=== PATIENT | male | born 1935 | race Caucasian/White ===

== ENCOUNTER 2020-01-06 08:31 | Inpatient (IN) | payer MEDICARE, OTHER ==
[~2020-01-06] VITALS: Ht 172.7 cm; Wt 94.3 kg
--- NOTE | 2020-01-06 08:35 | NUR ---
BIBRA 61 FROM HOME, W C/O SOB, 86% ON RA, ALBUTEROL 5MG GIVEN BY EMT, O2 SATURATION WENT UP TO 95% ON 4LPM VIA NC. TO ER BED 8, HOOKED TO HARDWARE ENGINEERING MANAGER AND POX, PATIENT NOTED TACHYCARDIC, TEMP OF 101.3F, HYPERVENTILATING. CHANGED TO HOSP GOWN, COOLING MEASURES DONE. AAO x 4, DR MAYORGA AT BEDSIDE FOR EVAL.
--- NOTE | 2020-01-06 08:51 | NUR ---
COVID, RESP PATHOGEN PROFILE AND INFLUENZA SWAB DONE AND SENT TO LAB
[2020-01-06] MEDS ORDERED: ACETAMINOPHEN 325 MG TABLET ONE (09:00)
[2020-01-06] MEDS ORDERED: ACETAMINOPHEN 325 MG TABLET PO ONE (09:00)
--- NOTE | 2020-01-06 09:00 | NUR ---
PAGED [facility].
[2020-01-06 09:06] LABS: BASOPHILS # (AUTO) 0.1 /CMM (0.0-0.2); BASOPHILS % (AUTO) 0.6 % (0.0-2.0); HEMATOCRIT 52 % (39-51); HEMOGLOBIN 17.8 g/dL (13.5-17.5); LYMPHOCYTES # (AUTO) 0.8 /CMM (0.8-4.8); LYMPHOCYTES % (AUTO) 5.5 % (20.0-44.0); MEAN CORPUSCULAR HGB CONC 34 g/dl (31.0-36.0); MEAN CORPUSCULAR VOLUME 92 fL (80-96); MONOCYTES # (AUTO) 0.1 /CMM (0.1-1.30); MONOCYTES % (AUTO) 0.8 % (2.0-12.0); NEUTROPHILS # (AUTO) 12.9 /CMM (1.8-8.9); NEUTROPHILS % (AUTO) 92.1 % (43.0-81.0); PLATELET COUNT (AUTO) 277 /CMM (150-450); RED BLOOD CELL COUNT(AUTO) 5.68 MIL/uL (4.5-6.0)
--- NOTE | 2020-01-06 09:10 | NUR ---
CALLED NURSING SUP FOR TELE BED.
[2020-01-06 09:12] LABS: CALCIUM, SERUM 8.8 mg/dL (8.5-10.1); CARBON DIOXIDE 20 mmol/L (21-32); CHLORIDE 103 mmol/L (98-107); CREATININE 1.9 mg/dL (0.6-1.3); GLUCOSE 133 mg/dL (74-106); POTASSIUM 3.4 mmol/L (3.5-5.1); SODIUM SERUM 143 mmol/L (136-145); UREA NITROGEN, BLOOD 25 mg/dL (7-18)
--- NOTE | 2020-01-06 09:12 | NUR ---
PATIENT NOT ABLE TO PROVIDE URINE SAMPLE. MD PRIETO
[2020-01-06 09:18] LABS: ALANINE AMINOTRANSFERASE 92 U/L (12-78); ALBUMIN 3.1 g/dL (3.4-5.0); ALKALINE PHOSPHATASE 150 U/L (46-116); ASPARTATE AMINOTRANSFERASE 95 U/L (15-37); BILIRUBIN,DIRECT 0.4 mg/dL (0.0-0.2); BILIRUBIN,TOTAL 1.3 mg/dL (0.2-1.0); TOTAL PROTEIN, SERUM 7.5 g/dL (6.4-8.2)
[2020-01-06] MEDS ORDERED: IV NS 0.9% 1,000 ML BAG IV ONE (09:30)
[2020-01-06] MEDS ORDERED: VANCOMYCIN 1 GM in IV D5W 250 ML IV ONE (09:30)
[2020-01-06] MEDS ORDERED: PIPERACILLIN /TAZOBACTAM 3.375 G in IV D5W 50 ML IV ONE (09:30)
--- NOTE | 2020-01-06 10:02 | NUR ---
PATIENT IN BED AWAKE, HOOKED TO MONITOR, VSS. WILL CONTINUE TO MONITOR ACCORDINGLY
--- NOTE | 2020-01-06 10:32 | NUR ---
PATIENT STILL NOT ABLE TO PROVIDE URINE SAMPLE. MD PRIETO
--- NOTE | 2020-01-06 11:12 | NUR ---
REPORT GIVEN TO FELICIA WALTERS OF TELE UNIT
--- NOTE | 2020-01-06 11:45 | NUR ---
RN OPENING NOTE Received patient awake alert oriented to room 110. No signs of distress. VS within normal limits. On NC 4L tolerating well. Will cont to monitor.
[2020-01-06 12:00] VITALS: BP 121/75
[2020-01-06] MEDS ORDERED: Z GUARD REMEDY 2 OZ OINT TP PRN (12:30)
[2020-01-06] MEDS ORDERED: ACETAMINOPHEN 325 MG TABLET PO PRN (12:30)
[2020-01-06] MEDS ORDERED: ZOLPIDEM TARTRATE 5 MG TABLET PO PRN (12:30)
[2020-01-06] MEDS ORDERED: HYDROCODONE/APAP 5/325MG 1 EACH TABLET PO PRN (12:30)
[2020-01-06] MEDS ORDERED: POTASSIUM CL. PREMIX PERIPHER. 50 ML IV SCH (12:30)
[2020-01-06] MEDS ORDERED: FEE PK DOSING 1 MIN EA MC ONE (13:19)
--- NOTE | 2020-01-06 13:44 | NUR ---
RN NOTE Received order from Dr. Perdue to changed Potassium Chloride from IV to PO.
[2020-01-06] MEDS ORDERED: POTASSIUM CHLORIDE 20 MEQ TAB.PRT.SR PO ONE (14:00)
[2020-01-06] MEDS ORDERED: CALCIUM CARBONATE 500 MG TAB.CHEW PO PRN (14:30)
[2020-01-06] MEDS ORDERED: ALBUTEROL SULFATE INH 18 GM HFA.AER.AD IH PRN (15:00)
[2020-01-06] MEDS ORDERED: PIPERACILLIN /TAZOBACTAM 3.375 G in IV D5W 100 ML IV SCH (15:00)
[2020-01-06] MEDS ORDERED: methylPREDNISolone SOD SUCC 125 MG/2ML VIAL IV ONE (15:00)
[2020-01-06] MEDS: PIPERACILLIN /TAZOBACTAM 3.375 G in IV D5W 100 ML IV SCH ×2 (15:46→23:53)
[2020-01-06 16:00] VITALS: BP 142/79
--- NOTE | 2020-01-06 16:30 | NUR ---
PADMINI RN NOTE Received call from LAB reg Troponin level 0.[address] Perdue awaiting call back.
[2020-01-06] MEDS ORDERED: PIPERACILLIN /TAZOBACTAM 3.375 G in IV D5W 50 ML IV SCH (17:00)
--- NOTE | 2020-01-06 17:08 | NUR ---
PADMINI RN NOTE Received call back from Dr. Perdue reg Troponin 0.68 no new orders.
--- NOTE | 2020-01-06 18:30 | NUR ---
PADMINI RN NOTE Patient refused to sign EGD consent form. Paged Dr. Perdue to inform.
--- NOTE | 2020-01-06 18:57 | NUR ---
PADMINI RN CLOSING NOTE Patient in bed sitting having dinner. Appears calm and relaxed. On NC 4L tolerating well @ 95%. Patient is Divehi speaking AO x4 knows adequate Icelandic. Tele reading 100bpm. No signs of distress. Complains of heartburn. Gave Tums with little bit of comfort. Requested to have hot tea. All needs met. All due meds given. Continue on ATB no signs of adverse reaction to medications. Has LIBAN midline.Afebrile throughout the shift. Vital signs within normal limits. Safety measure reinforced. Call light within reach. Bed locked and on lowest position. Siderails up x2. Will endorse to assembler 1st shift nurse for angelica.
[2020-01-06 20:00] VITALS: BP 150/84
[2020-01-07] VITALS: BP 146/70
[2020-01-07 04:00] VITALS: BP 145/90
[2020-01-07 06:21] LABS: BASOPHILS # (AUTO) 0.1 /CMM (0.0-0.2); BASOPHILS % (AUTO) 0.2 % (0.0-2.0); HEMATOCRIT 45 % (39-51); HEMOGLOBIN 15.3 g/dL (13.5-17.5); LYMPHOCYTES % (AUTO) 3.7 % (20.0-44.0); MEAN CORPUSCULAR HGB CONC 34 g/dl (31.0-36.0); MEAN CORPUSCULAR VOLUME 90 fL (80-96); MONOCYTES # (AUTO) 0.9 /CMM (0.1-1.30); MONOCYTES % (AUTO) 3.4 % (2.0-12.0); NEUTROPHILS # (AUTO) 24.4 /CMM (1.8-8.9); NEUTROPHILS % (AUTO) 92.7 % (43.0-81.0); PLATELET COUNT (AUTO) 191 /CMM (150-450); RED BLOOD CELL COUNT(AUTO) 4.98 MIL/uL (4.5-6.0); WHITE BLOOD COUNT (AUTO) 26.3 K/uL (4.3-11.0)
[2020-01-07 06:36] LABS: ALBUMIN 2.6 g/dL (3.4-5.0); CALCIUM, SERUM 8.9 mg/dL (8.5-10.1); CREATININE 1.2 mg/dL (0.6-1.3); MAGNESIUM 1.9 mg/dL (1.8-2.4); PHOSPHORUS 3.8 mg/dL (2.5-4.9); POTASSIUM 4.1 mmol/L (3.5-5.1); TOTAL PROTEIN, SERUM 6.5 g/dL (6.4-8.2)
[2020-01-07 07:09] LABS: THYROID STIMULATING HORMONE 0.648 uIU/mL (0.358-3.74)
[2020-01-07 07:10] LABS: C-REACTIVE PROTEIN 15.2 mg/dL (0.0-0.9)
[2020-01-07] MEDS: PIPERACILLIN /TAZOBACTAM 3.375 G in IV D5W 100 ML IV SCH ×3 (07:31→23:20)
[2020-01-07 08:00] VITALS: BP 143/75
[2020-01-07 08:31] LABS: NEUTROPHILS % (MANUAL) 78 (42-76)
[2020-01-07 08:32] LABS: BAND % (MANUAL) 13 % (0.0-5.0); LYMPHOCYTES % (MANUAL) 5 % (16-48); METAMYELOCYTES % 1 % (0-0); MONOCYTES % (MANUAL) 3 % (0-11.0)
[2020-01-07] MEDS: PANTOPRAZOLE 40 MG TABLET.DR PO SCH (09:26)
[2020-01-07] MEDS: methylPREDNISolone SOD SUCC 125 MG/2ML VIAL IV SCH ×3 (09:26→17:08)
[2020-01-07] MEDS: VANCOMYCIN 1 GM in IV D5W 250 ML IV SCH (09:27)
[2020-01-07] MEDS ORDERED: METO-357 PO (09:56)
[2020-01-07] MEDS ORDERED: ASPI-605 PO (09:56)
[2020-01-07] MEDS ORDERED: DUTA0.5C PO ×2 (09:57→10:00)
[2020-01-07] MEDS ORDERED: ROSU20TA2 PO (09:57)
[2020-01-07] MEDS ORDERED: LINA145C PO (09:58)
[2020-01-07] MEDS ORDERED: TAMS-12 PO (09:59)
[2020-01-07] MEDS ORDERED: VANCOMYCIN 1 GM in IV D5W 250 ML IV SCH (10:00)
[2020-01-07] MEDS ORDERED: FURO40TA5 PO (10:01)
[2020-01-07] MEDS ORDERED: ERGO500040 PO (10:02)
[2020-01-07] MEDS: ATORVASTATIN 10 MG TABLET PO SCH (11:21)
[2020-01-07] MEDS: ASPIRIN 81 MG TAB.CHEW PO SCH (11:21)
[2020-01-07] MEDS: ENOXAPARIN SODIUM 40 MG/0.4 ML DISP.SYRIN SQ SCH (11:22)
[2020-01-07 12:00] VITALS: BP_SYST 119; BP_DIAS 71; BP_DIAS 79
[2020-01-07 12:32] LABS: D-DIMER 9.03 mg/L(FEU (0.17-0.50)
[2020-01-07 16:00] VITALS: BP 134/106
--- NOTE | 2020-01-07 19:41 | NUR ---
Handoff with night team, SELENA Soto. Marshall Ortega RN
[2020-01-07 20:00] VITALS: BP 159/80
[2020-01-08] VITALS: BP 158/82
[2020-01-08 04:00] VITALS: BP 142/89
[2020-01-08] MEDS: VANCOMYCIN 1 GM in IV D5W 250 ML IV SCH ×2 (04:55→22:53)
[2020-01-08 06:19] LABS: BASOPHILS % (AUTO) 0.1 % (0.0-2.0); HEMATOCRIT 43 % (39-51); HEMOGLOBIN 14.7 g/dL (13.5-17.5); LYMPHOCYTES # (AUTO) 0.8 /CMM (0.8-4.8); LYMPHOCYTES % (AUTO) 3.6 % (20.0-44.0); MEAN CORPUSCULAR HGB CONC 34 g/dl (31.0-36.0); MEAN CORPUSCULAR VOLUME 91 fL (80-96); MONOCYTES # (AUTO) 1.1 /CMM (0.1-1.30); MONOCYTES % (AUTO) 5.1 % (2.0-12.0); NEUTROPHILS # (AUTO) 19.5 /CMM (1.8-8.9); NEUTROPHILS % (AUTO) 91.2 % (43.0-81.0); PLATELET COUNT (AUTO) 181 /CMM (150-450); RED BLOOD CELL COUNT(AUTO) 4.73 MIL/uL (4.5-6.0); WHITE BLOOD COUNT (AUTO) 21.4 K/uL (4.3-11.0)
[2020-01-08 07:09] LABS: ALBUMIN 2.5 g/dL (3.4-5.0); BILIRUBIN,TOTAL 0.6 mg/dL (0.2-1.0); CREATININE 0.9 mg/dL (0.6-1.3); MAGNESIUM 2.2 mg/dL (1.8-2.4); PHOSPHORUS 3.5 mg/dL (2.5-4.9); POTASSIUM 4.3 mmol/L (3.5-5.1); TOTAL PROTEIN, SERUM 6.5 g/dL (6.4-8.2)
--- NOTE | 2020-01-08 07:37 | NUR ---
TELE/RN OPENING NOTES RECEIVED PATIENT ON BED. PATIENT IN NO APPARENT RESPIRATORY DISTRESS NOTED. PATIENT ALERT ORIENTED X4. DENIES ANY PAIN AT THIS TIME. ON TELE MONITOR IN PLACED WITH READING SR 74. BED IN LOWEST POSITION SIDE RAILS UP X2. CALL LIGHT WITH IN REACH.WILL CONTINUE TO MONITOR.
[2020-01-08] MEDS: PANTOPRAZOLE 40 MG TABLET.DR PO SCH (07:56)
[2020-01-08 08:00] VITALS: BP 155/76
[2020-01-08] MEDS: PIPERACILLIN /TAZOBACTAM 3.375 G in IV D5W 100 ML IV SCH ×2 (08:50→16:31)
[2020-01-08] MEDS: methylPREDNISolone SOD SUCC 125 MG/2ML VIAL IV SCH ×3 (08:54→16:36)
[2020-01-08] MEDS: ATORVASTATIN 10 MG TABLET PO SCH (08:54)
[2020-01-08] MEDS: ASPIRIN 81 MG TAB.CHEW PO SCH (08:54)
[2020-01-08] MEDS: ENOXAPARIN SODIUM 40 MG/0.4 ML DISP.SYRIN SQ SCH (08:58)
[2020-01-08] MEDS: ALBUTEROL FS 2.5 MG/0.5 ML VIAL.NEB NEB SCH ×5 (09:02→23:52)
[2020-01-08 12:00] VITALS: BP 138/79
[2020-01-08] MEDS ORDERED: IV NS 0.9% 1,000 ML IV PRN (12:16)
[2020-01-08] MEDS ORDERED: IOHEXOL-350 100 ML VIAL IV ONE (13:15)
[2020-01-08] MEDS ORDERED: IV NS 0.9% 250 ML IV ONE (13:15)
[2020-01-08] MEDS ORDERED: METOPROLOL TARTRATE INJ 5 MG/5 ML AMPUL ONE (13:16)
[2020-01-08] MEDS ORDERED: NITROGLYCERIN 0.4 MG/TAB BOTTLE ONE (13:16)
--- NOTE | 2020-01-08 13:20 | NUR ---
TELE/RN NOTES PATIENT IS OUT THE UNIT FOR CT ANGIO 3D IMAGE, CONSTRUCTION PROJECT MANAGER BY RADIO [employer].
[2020-01-08] MEDS ORDERED: IV NS 0.9% 500 ML IV PRN (13:30)
[2020-01-08] MEDS ORDERED: NITROGLYCERIN 0.4 MG/TAB BOTTLE SL ONE (13:30)
[2020-01-08] MEDS: METOPROLOL TARTRATE INJ 5 MG/5 ML AMPUL IVP PRN ×2 (13:37→13:42)
--- NOTE | 2020-01-08 13:50 | NUR ---
Received from unit via bed; ANA;ann CP placed on O2 NC at 2LPM; Received total of Metoprolol 5 10 mg IVP and 0.04 mg NTG SL. pt tolerated procedure; sent back to unit via bed. report given to Vinay WALTERS
--- NOTE | 2020-01-08 14:05 | NUR ---
TELE/RN NOTES PATIENT CAME BACK IN THE UNIT FROM RADIOLOGY.
[2020-01-08 16:00] VITALS: BP 130/80
--- NOTE | 2020-01-08 18:54 | NUR ---
TELE/RN CLOSING NOTES PATIENT IS ON BED. PATIENT IS ALERT AND ORIENTED X 4. PATIENT IN NO APPARENT DISTRESS NOTED. DENIES ANY PAIN AT THIS TIME. TELE MONITOR IN PLACE SINUS RHYTHM 78. PATIENT WITH NASAL CANNULA IN PLACED AT 4 L/MIN. IV ACCESS IN PLACED AT RIGHT UPPER ARM MIDLINE PATENT AND INTACT. IVF OF NS 1L AT 70 ML/HR ON AND INFUSING WELL. SEEN AND EXAMINED BY MD WITH ORDERS MADE AND CARRIED OUT. ALL DUE MEDS WAS GIVEN. SAFETY PRECAUTION IN PLACE. CHECKED PATIENT EVERY 2 HOURS. KEPT PATIENT CLEAN AND DRY THE WHOLE SHIFT. BED IS IN LOWEST POSITION, SIDE RAILS UP X2. CALL LIGHT WITHIN REACH. WILL ENDORSED TO FOURDRINIER MACHINE TENDER FOR YARA.
[2020-01-08 20:00] VITALS: BP 139/85
--- NOTE | 2020-01-08 23:26 | NUR ---
SIFTER OPERATOR NOTES PT C/O ABDOMINAL PAIN D/T CONSTIPATION OF 4 DAYS. ORDER RECEIVED FROM EVI NOONAN FOR COLACE AND DULCOLAX MEDS AND CARRIED OUT. ALL SAFETY MEASURES IN PLACE, BED LOCKED, IN LOWEST POSITION. NAD WILL CONT TO MONITOR.
[2020-01-09] VITALS (8 sets, daily range): BP systolic 123–142; BP diastolic 65–77
[2020-01-09] MEDS: BISACODYL SUPP (10 MG) 10 MG/SUPP.RECT SUPP.RECT RC PRN (00:10)
[2020-01-09] MEDS: DOCUSATE SODIUM 100 MG CAPSULE PO SCH ×2 (00:10→08:03)
[2020-01-09] MEDS: PIPERACILLIN /TAZOBACTAM 3.375 G in IV D5W 100 ML IV SCH ×4 (00:38→23:59)
[2020-01-09] MEDS: ALBUTEROL FS 2.5 MG/0.5 ML VIAL.NEB NEB SCH ×6 (03:14→23:05)
--- NOTE | 2020-01-09 05:32 | NUR ---
WAREHOUSE HELPER NOTES REPORT GIVEN TO MICHAELLE ABOUT TRANSFER
--- NOTE | 2020-01-09 05:45 | NUR ---
CABINETMAKER SUPERVISOR NOTES TRANSFERRED PT TO 3W IN ACCORDANCE WITH ACLS PROTOCOL VIA HOSPITAL BED
--- NOTE | 2020-01-09 05:50 | NUR ---
RN NOTES RECEIVED PATIENT FROM MIKE RN. PATIENT WAS ORIENTED TO ROOM. ON 4L NASAL CANULA NO SOB/ ACUTE RESPIRATOR DISTRESS NOTED. CALL LIGHT IS WITHIN REACH. NO COMPLAINTS OF PAIN AT THE MOMENT. BED IS IN LOWEST LOCKED POSITION WITH SIDE RAILS UP X2. A/O X4. WILL CONTINUE TO MONITOR.
--- NOTE | 2020-01-09 06:50 | NUR ---
RN CLOSE NOTES PATIENT IS WATCHING TV IN BED. BED IS IN LOWEST LOCKED POSITION WITH SIDE RAILS UP X2, SEMI FOWLERS. ON 4L NASAL CANULA SATURATING AT 95%. NO SOB/ ACUTE RESPIRATORY DISTRESS NOTED. NO COMPLAINTS OF PAIN AT THE MOMENT/ APPEARS COMFORTABLE. CALL LIGHT IS WITHIN REACH. ZOSYN IS STILL RUNNING AT 25 MLS/HR THROUGH MIDLINE LIBAN. WILL ENDORSE TO AM NURSE.
[2020-01-09 06:52] LABS: BASOPHILS % (AUTO) 0.1 % (0.0-2.0); HEMATOCRIT 42 % (39-51); HEMOGLOBIN 14.1 g/dL (13.5-17.5); LYMPHOCYTES # (AUTO) 0.5 /CMM (0.8-4.8); LYMPHOCYTES % (AUTO) 3.7 % (20.0-44.0); MEAN CORPUSCULAR HGB CONC 34 g/dl (31.0-36.0); MEAN CORPUSCULAR VOLUME 90 fL (80-96); MONOCYTES # (AUTO) 0.8 /CMM (0.1-1.30); MONOCYTES % (AUTO) 5.4 % (2.0-12.0); NEUTROPHILS # (AUTO) 12.7 /CMM (1.8-8.9); NEUTROPHILS % (AUTO) 90.8 % (43.0-81.0); PLATELET COUNT (AUTO) 164 /CMM (150-450); RED BLOOD CELL COUNT(AUTO) 4.61 MIL/uL (4.5-6.0)
[2020-01-09 06:56] LABS: ALBUMIN 2.5 g/dL (3.4-5.0); BILIRUBIN,TOTAL 0.6 mg/dL (0.2-1.0); CALCIUM, SERUM 8.9 mg/dL (8.5-10.1); CREATININE 0.9 mg/dL (0.6-1.3); PHOSPHORUS 2.8 mg/dL (2.5-4.9); POTASSIUM 4.1 mmol/L (3.5-5.1); TOTAL PROTEIN, SERUM 6.2 g/dL (6.4-8.2)
--- NOTE | 2020-01-09 07:30 | NUR ---
MS/RN Opening note Patient received from shift engineer. A/O X4, unhappy, stating that he doesn't know why he's in hospital and that no doctor has spoken to him and explained any of his test results to him. Will notify Dr Carlos of patient's concerns. Denies pain or shortness of breath, saturation on 4l 97%, other vital signs within normal range. Midline to right upper arm flushing well with normal saline. Safety measures in place, call light within, will continue to monitor and ensure safety.
[2020-01-09] MEDS: ASPIRIN 81 MG TAB.CHEW PO SCH (08:03)
[2020-01-09] MEDS: ATORVASTATIN 10 MG TABLET PO SCH (08:03)
[2020-01-09] MEDS: PANTOPRAZOLE 40 MG TABLET.DR PO SCH (08:03)
[2020-01-09] MEDS: ENOXAPARIN SODIUM 40 MG/0.4 ML DISP.SYRIN SQ SCH (08:04)
[2020-01-09] MEDS: methylPREDNISolone SOD SUCC 125 MG/2ML VIAL IV SCH ×3 (08:04→16:51)
--- NOTE | 2020-01-09 08:40 | NUR ---
MS/RN S/B Dr Carlos Seen by MD - orders noted and carried out.
--- NOTE | 2020-01-09 09:17 | NUR ---
MS/RN Labs Morning labs reviewed: -Trop - 0.0067 -WBC - 14 CXR shows pulmonary vascular congestion with probable right sided pleural effusion.
--- NOTE | 2020-01-09 15:00 | NUR ---
MS/RN Zosyn IAVB zosyn hung as ordered, no signs of any infiltration.
--- NOTE | 2020-01-09 18:16 | NUR ---
MS/RN End note Patient remains in stable condition, no shortness of breath. All medications administered as ordered, all questions and concerns addressed. Will endorse to car shifter.
--- NOTE | 2020-01-09 20:00 | NUR ---
RN NOTES RECEIVED PT. AWAKE ON BED, A/OX3, NOTICED ABOVE TH3E KNEE AMPUTATION, DENIES PAIN, NO SOB, CALL LIGHT WITHIN REACH, SIDERAILSUPX2, CONTINUE TO MONITOR
--- NOTE | 2020-01-09 20:00 | NUR ---
RN NOTES RECEIVED PT. AWAKE, OBTUNDED, VENT DEPENDENT, SR WITH BBB ON TELE MONITOR HR-90, G-TUBE IN PLACE, NOT IN DISTRESS, NO PAIN NOTED, SIDERAILSUPX2, CONTINUE TO MONITOR Addendum: 01/10/20 at 0611 by KORINA PARADA RN WRONG PATIENT
[2020-01-10] MEDS: ALBUTEROL FS 2.5 MG/0.5 ML VIAL.NEB NEB SCH ×6 (02:39→23:30)
--- NOTE | 2020-01-10 06:13 | NUR ---
RN NOTES OFFERED PATIENT SUPPOSITORY BUT PATIENT STATED HE WANTS TO TAKE IT AFTER BREAKFAST, MORNING CARE RENDERED, CALL LIGHT WITHIN REACH, [id number], PT. NEEDS ATTENDED
[2020-01-10 08:00] VITALS: BP 137/84
--- NOTE | 2020-01-10 08:00 | NUR ---
MS RN OPENING NOTES RECEIVED PT IN BED, WATCHING TV IN BED. AOX3. NO CADRIAC OR RESP DISTRESS NOTED. R BKA NOTED ON O2 AT 3L/MIN VIA NASAL CANULA SATURATING AT 95%. NO SOB NOTED. BREATHING EVEN AND UNLABORED. IV ACCESS NOTED ON ON R UPPER ARM MIDLINE G18. INTACT AND PATENT AND FLUSHING WELL. SAFETY PRECAUTIONS IN PLACE. BED LOCKED AND IN LOW POSITION. SIDE RAILS UP X2. BED ALARM ON. WILL CONT TO MONITOR
[2020-01-10 08:03] LABS: BASOPHILS % (AUTO) 0.1 % (0.0-2.0); EOSINOPHILS % (AUTO) 0.6 % (0.0-6.0); HEMATOCRIT 45 % (39-51); HEMOGLOBIN 15.2 g/dL (13.5-17.5); LYMPHOCYTES # (AUTO) 0.9 /CMM (0.8-4.8); LYMPHOCYTES % (AUTO) 7.3 % (20.0-44.0); MEAN CORPUSCULAR HGB CONC 34 g/dl (31.0-36.0); MEAN CORPUSCULAR VOLUME 90 fL (80-96); MONOCYTES % (AUTO) 8.7 % (2.0-12.0); NEUTROPHILS % (AUTO) 83.3 % (43.0-81.0); PLATELET COUNT (AUTO) 174 /CMM (150-450); RED BLOOD CELL COUNT(AUTO) 4.94 MIL/uL (4.5-6.0)
[2020-01-10] MEDS: BISACODYL SUPP (10 MG) 10 MG/SUPP.RECT SUPP.RECT RC PRN (08:15)
[2020-01-10] MEDS: methylPREDNISolone SOD SUCC 125 MG/2ML VIAL IV SCH ×3 (08:15→16:10)
[2020-01-10] MEDS: PANTOPRAZOLE 40 MG TABLET.DR PO SCH (08:15)
[2020-01-10] MEDS: DOCUSATE SODIUM 100 MG CAPSULE PO SCH (08:16)
[2020-01-10] MEDS: ASPIRIN 81 MG TAB.CHEW PO SCH (08:16)
[2020-01-10] MEDS: ATORVASTATIN 10 MG TABLET PO SCH (08:16)
[2020-01-10] MEDS: ENOXAPARIN SODIUM 40 MG/0.4 ML DISP.SYRIN SQ SCH (08:17)
[2020-01-10] MEDS: PIPERACILLIN /TAZOBACTAM 3.375 G in IV D5W 100 ML IV SCH ×2 (08:19→16:10)
[2020-01-10] MEDS ORDERED: MAGNESIUM CITRATE 296 ML BOTTLE PO ONE (08:30)
[2020-01-10 08:37] LABS: CALCIUM, SERUM 9.2 mg/dL (8.5-10.1); CREATININE 1.1 mg/dL (0.6-1.3); PHOSPHORUS 3.2 mg/dL (2.5-4.9); POTASSIUM 4.4 mmol/L (3.5-5.1)
--- NOTE | 2020-01-10 09:30 | NUR ---
ABD PAIN PT COMPLAINED OF ABD PAIN. PER PT, HIS LAST BM WAS [address] DONAHUE CURRENTLY IN PTS ROOM, ORDERED MAGNESIUM CITRATED PO X1 NOW. ADMINISTERED TO PT. WILL MONITOR FOR BOWEL MOVEMENT.
--- NOTE | 2020-01-10 15:00 | NUR ---
EMESIS X1 PT HAD BLACK VOMITUS X1 ABOUT 150ML. ASKED PT IF HE IS STILL NAUSEATED OR IF HE STILL FEELS LIKE THROWING UP. PT STATES , "NO NOT ANYMORE". HOWEVER, HE STILL FEELS ABD DISCOMFORT 12/13. HE CO-RELATES THIS WITH NOT HAVING A BM X6 DAYS HE SAID. ASSESED PTS ABDOMEN, ABDOMEN IS DISTENDED AND A LITTLE HARD TO TOUCH. TENDERNESS FELT BY PT UPON PALPATION. BOWEL SOUNDS PRESENT ON 4 QUADRANTS. HOWEVER, HE STATES THAT HE FELT BETTER AFTER HE THREW UP. NOTIFIED DR. DONAHUE. DR. DONAHUE ORDERED CT SCAN OF ABDOMEN WITH CONTRAST. AND TO KEEP PT NPO STARTING NOW AND THAT HE WANTS GI CONSULT. ORDERS NOTED AND CARRIED OUT.
--- NOTE | 2020-01-10 15:30 | NUR ---
CONSENT OBTAINED FOR CT SCAN OF ABDOMEN CONSENT OBTAINED FROM PT FOR CT SCAN OF THE ABDOMEN. PT AOX4 GAVE CONSENT FOR CT SCAN. ALSO NOTIFIED PT THAT HE WILL BE KEPT NPO FOR NOW UNTIL HIS MD SAYS OTHERWISE OR UNTIL BOWEL OBSTRUCTION IS RULED OUT. PT AGREED.
--- NOTE | 2020-01-10 15:35 | NUR ---
GI CONSULT NOTIFIED DR. OLIVER REGARDING THE NEED FOR GI CONSULT. NOTIFIED MD REGARDING PTS SYMPTOMS. MD ORDERED TO KEEP PT NPO. AND WILL WAIT FOR CT SCAN RESULTS TO RULE OUT OBSTRUCTION. H AND H Q4HRS UNTIL STABLE AND TO TRANSFUSE 1 UNITS PRBC IF HGB <7. ORDERS NOTED AND CARRIED OUT. NOTIFIED DR. OLIVER REGARDING PTS CURRENT HGB= 15.2 HCT= 45. PER MD, 'YES I KNOW. I NOTICED THAT'.
[2020-01-10 16:00] VITALS: BP 140/80
--- NOTE | 2020-01-10 16:30 | NUR ---
SEEN BY DR. OLIVER PT SEEN BY DR. OLIVER, ALSO SHOWED DR. OLIVER PT'S EMESIS. PER MD, 'LOOKS LIKE BILE. MOSTLY LIKELY ITS AN OBSTRUCTION. WE WILL WAIT FOOR CT SCAN RESULTS.'
[2020-01-10] MEDS ORDERED: IOHEXOL-300 100 ML VIAL IV ONE (17:30)
[2020-01-10] MEDS ORDERED: IV NS 0.9% 250 ML IV ONE (17:30)
[2020-01-10] MEDS ORDERED: CT SWABBABLE VALVE TRANS SET 1 EA INFUS.SET MC ONE (17:30)
[2020-01-10 17:36] LABS: HEMOGLOBIN 16.7 g/dL (13.5-17.5)
--- NOTE | 2020-01-10 19:34 | NUR ---
MS/RN OPENING NOTES: RECEIVED REPORT FROM NAZANIN WALTERS FRO DAY SHIFT. PT IS A/OX3, VERBALLY RESPONSIVE AND ABLE TO MAKE NEEDS KNOWN. NO SOB NOTED, NO S/S OF DISTRESS. NO C/O PAIN AT THIS. ON ROOM AIR. RECEIVED PT WITH AN EMESIS BAG AT BEDSIDE WITH DARK WATERY CONTENTS. RIGHT LEG PROSTHESIS PRESENT. SKIN INTACT. IV IS ON THE RIGHT UPPER ARM MIDLINE #18G, INTACT AND PATENT. PER DR. STRONG, KEEP PT NPO FOR NOW UNTIL FURTHER NOTICE. AWAITING FOR CT OF THE ABDOMEN RESULTS TO COME BACK. SAFETY MEASURES IN PLACE. BED IN LOW, LOCKED POSITION WITH SR UP X2. WILL KEEP MONITORING.
--- NOTE | 2020-01-10 19:35 | NUR ---
MS RN OPENING NOTES PT IN BED, WATCHING TV IN BED. AOX3. NO CADRIAC OR RESP DISTRESS NOTED. R BKA NOTED ON O2 AT 3L/MIN VIA NASAL CANULA SATURATING AT 95%. NO SOB NOTED. BREATHING EVEN AND UNLABORED. IV ACCESS NOTED ON ON R UPPER ARM MIDLINE G18. INTACT AND PATENT AND FLUSHING WELL. AWAITING FRO CT RESULTS OF ABDOMEN. KEPT PT NPO. SAFETY PRECAUTIONS IN PLACE. BED LOCKED AND IN LOW POSITION. SIDE RAILS UP X2. BED ALARM ON.
[2020-01-10 20:00] VITALS: BP 141/78
[2020-01-10 20:05] VITALS: BP 141/78
--- NOTE | 2020-01-10 20:39 | NUR ---
MS/RN NOTES: CALLED DR. STRONG REGARDING PT'S CT ABDOMEN RESULTS. PER DR. STRONG, CONTACT HOSPITALIST LOU ESCALANTE TO GET CONSULT FROM SURGEON.
--- NOTE | 2020-01-10 21:00 | NUR ---
MS/RN NOTES: SELENA CURRAN FROM PADMINI IS PRESENT TO TRANSLATE FOR DR. SMALLWOOD REGARDING THE NEED FOR THE EMERGENCY PROCEDURE. PT. CALLED SON: EDD TO DECIDE IF HE WILL AGREE TO DO THE PROCEDURE.
--- NOTE | 2020-01-10 21:23 | NUR ---
MS/RN NOTES: DR. SMALLWOOD AT BEDSIDE TALKING TO THE PT REGARDING NEED FOR EMERGENCY SURGERY FRO THE SMALL BOWEL OBSTRUCTION. ASKED PT IF ITS OKAY TO CALL THE FAMILY.
[2020-01-10] MEDS: PANTOPRAZOLE 40 MG VIAL IV SCH (21:52)
--- NOTE | 2020-01-10 22:00 | NUR ---
MS/RN NOTES: PT.'S DAUGHTER ELIVA CALLED FRO AN UPDATE OF THE PLAN FOR THE SURGERY. INFORMED AND AWARE.
--- NOTE | 2020-01-10 22:40 | NUR ---
MS/RN NOTES: DR. SMALLWOOD CALLED FOR EMERGENCY PROCEDURE; OPEN RIGHT INGUINAL REPAIR, POSSIBLE MESH USE, POSSIBLE LAPAROTOMY. POSSIBLE BOWEL RESECTION, POSSIBLE OSTOMY, POSSIBLE ANY OTHER INDICATED PROCEDURE. ALL CONSENTS SIGNED. DR. SMALLWOOD ALSO ORDERED FOR RITCHIE CATH INSERTION AND NG TUBE INSERTION. EXPLAINED TO PATIENT.
[2020-01-10] MEDS ORDERED: LIDOCAINE 1% INJ 50 ML MDV IJ ONE (22:50)
[2020-01-10] MEDS ORDERED: ANESTHESIA TRAY IN PYXIS 1 EA TRAY MC ONE ×2 (22:50→22:57)
[2020-01-10] MEDS ORDERED: BUPIVACAINE MPF W/EPI 0.25% 30 ML VIAL ONE (22:50)
[2020-01-10] MEDS ORDERED: HYDROMORPHONE INJ 2 MG/ML DISP.SYRIN ONE (22:57)
[2020-01-10] MEDS ORDERED: ROCURONIUM BROMIDE 50 MG/5 ML ONE (22:57)
--- NOTE | 2020-01-10 23:00 | NUR ---
MS/RN NOTES: RN JAZMYNE FROM OR TRANSFERRED PT FOR EMERGENCY PROCEDURE; OPEN RIGHT INGUINAL REPAIR, POSSIBLE MESH USE, POSSIBLE LAPAROTOMY. POSSIBLE BOWEL RESECTION, POSSIBLE OSTOMY, POSSIBLE ANY OTHER INDICATED PROCEDURE. ALL CONSENTS SIGNED. PT HAS RITCHIE CATH PRESENT ORDERED BY DR. SMALLWOOD. NG TUBE PRESENT ORDERED BY LOU ESCALANTE NP AND DR. SMALLWOOD. VS STABLE. PT. LEFT THE UNIT IN STABLE CONDITION VIA BED.
[2020-01-10] MEDS ORDERED: FAMOTIDINE/PF INJ 20 MG/2 ML VIAL IV ONE (23:09)
--- NOTE | 2020-01-11 | NUR ---
MS/RN NOTES: ZOSYN 3.375G ANTIBIOTIC NOT GIVEN BC PT WAS IN OR FOR GI SURGERY.
[2020-01-11] MEDS ORDERED: ALBUTEROL FS 2.5 MG/3 ML VIAL.NEB ONE (01:41)
--- NOTE | 2020-01-11 02:25 | NUR ---
MS/RN NOTES: PT. ARRIVED BACK TO THE UNIT AT 0225 VIA GURNEY. PT IN STABLE CONDITION. SLEEPY YET AROUSABLE WHEN TALKED TO. INITIAL VS TAKEN. BP:129/69 HR:96. SATURATING AT 95-98% AT 4L OF OXYGEN VIA NC. NO SOB NOTED. NO S/S OF DISTRESS. NO C/O PAIN AT THIS TIME. RITCHIE CATH PRESENT WITH 40MLS OF CLEAR YELLOW URINE. DR. SMALLWOOD ORDERED D5/0.45NACL WITH 20MEQ POTASSIUM CHLORIDE FOR FLUIDS, AND ORDERED INTERMITTENT SUCTIONING NG TUBE. ORDERS NOTED AND CARRIED OUT. KEPT PT WARM AND COMFORTABLE FOR NOW AND WILL CONTINUE MONITORING ACCORDINGLY.
[2020-01-11 02:30] VITALS: BP 129/69
[2020-01-11] MEDS ORDERED: Potassium Chloride 20 MEQ in IV D5/0.45 NACL 1,000 ML IV ONE (02:30)
--- NOTE | 2020-01-11 03:00 | NUR ---
TELE/RN NOTES VS TAKEN. BP: 124/68 OR:98% ON 4L OF OXYGEN VIA CANNULA. NGT SUCTION INTERMITTENTLY DRAINING DARK BROWN FLUIDS. RITCHIE CATH ALSO DRAINING YELLOW URINE OUTPUT. Addendum: 01/11/20 at 0653 by PAIGE ZAMORA RN MS/RN
[2020-01-11] MEDS: ALBUTEROL FS 2.5 MG/0.5 ML VIAL.NEB NEB SCH ×6 (03:45→23:36)
[2020-01-11 06:14] LABS: HEMOGLOBIN 15.2 g/dL (13.5-17.5)
[2020-01-11 06:40] LABS: CALCIUM, SERUM 8.4 mg/dL (8.5-10.1); CARBON DIOXIDE 27 mmol/L (21-32); CHLORIDE 107 mmol/L (98-107); CREATININE 1.9 mg/dL (0.6-1.3); GLUCOSE 151 mg/dL (74-106); POTASSIUM 5.1 mmol/L (3.5-5.1); SODIUM SERUM 141 mmol/L (136-145); UREA NITROGEN, BLOOD 54 mg/dL (7-18)
--- NOTE | 2020-01-11 06:54 | NUR ---
MS RN CLOSING NOTES: PT IN BED, RESTING. REMAINS AOX3. NO CARDIAC OR RESP DISTRESS NOTED. R BKA NOTED. CURRENTLY ON O2 AT 4L/MIN VIA NASAL CANULA SATURATING AT 95%. NO SOB NOTED. BREATHING EVEN AND UNLABORED. NO COMPLAINS OF PAIN AT THIS TIME. NGT DRAINING INTERMITTENTLY PER ORDERED BY DR. SMALLWOOD. DRAINED DARK BROWN 500ML FOR THE WHOLE SHIFT. FC DRAINED YELLOW CLEAR URINE 200ML FOR THE WHOLE SHIFT. IV ACCESS ON R UPPER ARM MIDLINE G18. INTACT AND PATENT AND FLUSHING WELL. S/P RIGHT INGUINAL HERNIA REPAIR. DRESSING DRY AND INTACT. PT STILL NPO. KEPT PT WARM AND COMFORTABLE AT NIGHT. ALL NURSING NEEDS MET AND RENDERED. SAFETY PRECAUTIONS IN PLACE. BED LOCKED AND IN LOW POSITION. SIDE RAILS UP X2. BED ALARM ON. WILL ENDORSE TO DAY SHIFT FOR YARA.
--- NOTE | 2020-01-11 07:25 | NUR ---
MS RN NOTES PATIENT IN BED ALERT ORIENTED X 2-3. NO ACUTE DISTRESS NOTED. BREATHING UNLABORED. IV ACCESS PATENT AND INTACT, NO REDNESS OR SWELLING NOTED. RITCHIE CATHTER INTACT WITH DRAINING WELL. SURGICAL DRESSING CLEAN DRY AND INTACT. SAFETY MEASURES IN PLACE. CALL LIGHT WITHIN REACH. WILL CONTINUE TO MONITOR ACCORDINGLY.
[2020-01-11 08:00] VITALS: BP 122/63
[2020-01-11] MEDS: PANTOPRAZOLE 40 MG VIAL IV SCH ×2 (08:27→21:18)
[2020-01-11] MEDS: methylPREDNISolone SOD SUCC 125 MG/2ML VIAL IV SCH ×2 (08:30→10:30)
[2020-01-11] MEDS: PIPERACILLIN /TAZOBACTAM 3.375 G in IV D5W 100 ML IV SCH ×4 (08:33→15:38)
[2020-01-11] MEDS: ASPIRIN 81 MG TAB.CHEW PO SCH (09:00)
[2020-01-11] MEDS: ENOXAPARIN SODIUM 40 MG/0.4 ML DISP.SYRIN SQ SCH (09:00)
[2020-01-11] MEDS: DOCUSATE SODIUM 100 MG CAPSULE PO SCH (09:00)
[2020-01-11] MEDS: ATORVASTATIN 10 MG TABLET PO SCH (09:00)
[2020-01-11 09:42] LABS: HEMOGLOBIN 15.4 g/dL (13.5-17.5)
--- NOTE | 2020-01-11 09:54 | NUR ---
MS RN NOTES CLARIFIED LOVENOX ORDER WITH KRISTA GERONIMO PER MD TO HOLD DOSE, ORDER CLARIFIED AND READ BACK.
[2020-01-11] MEDS ORDERED: IV NS 0.9% 1,000 ML IV PRN (10:30)
[2020-01-11] MEDS ORDERED: IV D5/0.45 NACL 1,000 ML IV SCH (10:30)
--- NOTE | 2020-01-11 11:27 | NUR ---
ms rn notes clarified with dr julio gomez regarding solu medrol was changed to daily, made aware that dose was given this am, dr gomez said to given next dose tomorrow.
[2020-01-11] MEDS: IV D5/0.45 NACL 1,000 ML IV PRN (11:38)
[2020-01-11 16:00] VITALS: BP 120/68
[2020-01-11] MEDS ORDERED: IMIPENEM/CILASTATIN 1,000 MG in IV NS 0.9% 250 ML IV SCH (17:30)
--- NOTE | 2020-01-11 17:30 | NUR ---
MS RN NOTES PATIENT SEEN DNAD EVALUATED BY NAT BOLDEN WITH ORDERS FOR PATIENT MAY HAVE 1 CUP OF ICE CHIPS PER SHIFT. NOTED AND CARRIED OUT.
[2020-01-11] MEDS ORDERED: MEROPENEM 1 G in IV NS 0.9% 100 ML IV SCH (18:00)
[2020-01-11] MEDS: MEROPENEM 1 G in IV NS 0.9% 100 ML IV SCH (18:27)
--- NOTE | 2020-01-11 19:00 | NUR ---
MS RN NOTES PATIENT IN BED ALERT ORIENTED X 2-3. NO ACUTE DISTRESS NOTED. BREATHING UNLABORED. IV ACCESS PATENT AND INTACT, NO REDNESS OR SWELLING NOTED. RITCHIE CATHETER INTACT WITH DRAINING WELL. SURGICAL DRESSING CLEAN DRY AND INTACT. ON NGT SUCTION WITH 200CC OUT PUT. NEEDS ATTENDED AND ANTICIPATED. KEPT CLEAN DRY AND COMFORTABLE. SAFETY MEASURES IN PLACE. CALL LIGHT WITHIN REACH. WILL ENDORSE TO NIGHT NURSE FOR CONTINUITY OF CARE.
--- NOTE | 2020-01-11 19:14 | NUR ---
MS RN: RECEIVED PATIENT Patient in bed, awake, A/O x3. Right groin no bleeding, denies pain. Right nares, NGT to LIWS with dark green fluid drainage. NPO, IVF infusing. Fall; precaution maintained.
[2020-01-11 20:00] VITALS: BP 137/71
[2020-01-11 20:30] VITALS: BP 137/71
[2020-01-12] MEDS: ALBUTEROL FS 2.5 MG/0.5 ML VIAL.NEB NEB SCH ×6 (03:59→22:39)
[2020-01-12] MEDS: IV D5/0.45 NACL 1,000 ML IV PRN ×2 (05:30→19:08)
[2020-01-12] MEDS: MEROPENEM 1 G in IV NS 0.9% 100 ML IV SCH ×2 (05:36→18:30)
--- NOTE | 2020-01-12 06:33 | NUR ---
MS RN: END OF SHIFT REPORT Patient in bed, 96% on 2L NC, denies SOB. NPO, IVF infusing. NGT to LIWS with 400ml drainage dark brown. Abdomen still distended, denies pain. Ice chip per shift as ordered, no c/o nausea, no vomiting. No BM this shift, reports no flatus. Right groin with steri-strips in place, no bleeding. Fall precaution maintained. Plan for XR Chest today. Will endorse to oncoming RN.
[2020-01-12 07:11] LABS: BASOPHILS % (AUTO) 0.1 % (0.0-2.0); EOSINOPHILS % (AUTO) 0.3 % (0.0-6.0); HEMATOCRIT 43 % (39-51); HEMOGLOBIN 14.5 g/dL (13.5-17.5); LYMPHOCYTES # (AUTO) 0.7 /CMM (0.8-4.8); LYMPHOCYTES % (AUTO) 4.6 % (20.0-44.0); MEAN CORPUSCULAR HGB CONC 33 g/dl (31.0-36.0); MEAN CORPUSCULAR VOLUME 92 fL (80-96); MONOCYTES # (AUTO) 0.8 /CMM (0.1-1.30); MONOCYTES % (AUTO) 5.6 % (2.0-12.0); NEUTROPHILS # (AUTO) 13.6 /CMM (1.8-8.9); NEUTROPHILS % (AUTO) 89.4 % (43.0-81.0); PLATELET COUNT (AUTO) 158 /CMM (150-450); RED BLOOD CELL COUNT(AUTO) 4.72 MIL/uL (4.5-6.0); WHITE BLOOD COUNT (AUTO) 15.2 K/uL (4.3-11.0)
[2020-01-12 07:43] LABS: ALANINE AMINOTRANSFERASE 30 U/L (12-78); ALBUMIN 2.1 g/dL (3.4-5.0); ALKALINE PHOSPHATASE 66 U/L (46-116); ASPARTATE AMINOTRANSFERASE 25 U/L (15-37); BILIRUBIN,TOTAL 0.7 mg/dL (0.2-1.0); CALCIUM, SERUM 8.3 mg/dL (8.5-10.1); CARBON DIOXIDE 22 mmol/L (21-32); CHLORIDE 105 mmol/L (98-107); GLUCOSE 135 mg/dL (74-106); MAGNESIUM 3.4 mg/dL (1.8-2.4); PHOSPHORUS 5.1 mg/dL (2.5-4.9); SODIUM SERUM 138 mmol/L (136-145); TOTAL PROTEIN, SERUM 5.7 g/dL (6.4-8.2); UREA NITROGEN, BLOOD 67 mg/dL (7-18)
[2020-01-12 08:00] VITALS: BP 127/75
[2020-01-12] MEDS: DOCUSATE SODIUM 100 MG CAPSULE PO SCH (09:00)
[2020-01-12] MEDS: ATORVASTATIN 10 MG TABLET PO SCH (09:00)
[2020-01-12] MEDS: ASPIRIN 81 MG TAB.CHEW PO SCH (09:00)
[2020-01-12] MEDS: methylPREDNISolone SOD SUCC 125 MG/2ML VIAL IV SCH (10:11)
[2020-01-12] MEDS: PANTOPRAZOLE 40 MG VIAL IV SCH ×2 (10:11→21:38)
[2020-01-12] MEDS: ENOXAPARIN SODIUM 40 MG/0.4 ML DISP.SYRIN SQ SCH (10:13)
[2020-01-12 16:00] VITALS: BP 119/75
--- NOTE | 2020-01-12 18:00 | NUR ---
VERY EASILY AGITATED,DENIES NEED FOR PAIN MED.RT. GROIN DRSG DRY AND INTACT.
[2020-01-12 19:41] LABS: CREATININE, URINE 156.7 MG/DL (30.0-125.0); URINE TOTAL PROTEIN 156.3 mg/dL (0-11.9)
[2020-01-12 19:47] LABS: APPEARANCE,URINE SL CLOUDY (CLEAR); BILIRUBIN,URINE SMALL (NEGATIVE); BLOOD, URINE MODERATE Ery/uL (NEGATIVE); COLOR,URINE YELLOW (YELLOW); KETONES,URINE TRACE (NEGATIVE); LEUKOCYTE ESTERASE ,URINE NEGATIVE (NEGATIVE); NITRITE, URINE NEGATIVE (NEGATIVE); PROTEIN,URINE 100 mg/dl (NEGATIVE); UGLUCOSE NEGATIVE (NEGATIVE); UROBILINOGEN,URINE 0.2 EU/dL (0.2)
--- NOTE | 2020-01-12 19:57 | NUR ---
MS RN NOTES RECEIVED PATIENT IN BED ALERT ORIENTED X 2-3. NO ACUTE DISTRESS NOTED. BREATHING UNLABORED. IV ACCESS PATENT AND INTACT, NO REDNESS OR SWELLING NOTED. RITCHIE CATHETER INTACT WITH DRAINING WELL. SURGICAL DRESSING CLEAN DRY AND INTACT. ON NGT CONNECTED TO WALL SUCTION. ALL NEEDS ANTICIPATED, SAFETY MEASURES IN PLACE, ASPIRATION PRECAUTION EMPHASIZED, CALL LIGHT WITH IN EASY REACH. WILL CONTINUE TO MONITOR ACCORDINGLY.
[2020-01-12 20:47] LABS: BACTERIA,URINE 1+ /HPF (None Seen); HYALINE CASTS, URINE Few /LPF (None Seen); SQUAMOUS EPITHELIAL CELL,UR Few /HPF (None Seen); URINE AMORPHOUS URATE Few /HPF (None Seen); WBC,URINE 0-2 /HPF (0-3)
[2020-01-12 20:48] LABS: COARSE GRANULAR CASTS,URINE Moderate /LPF (None Seen); EOSINOPHIL,URINE None Seen
[2020-01-13] MEDS: ALBUTEROL FS 2.5 MG/0.5 ML VIAL.NEB NEB SCH ×5 (02:48→20:02)
[2020-01-13] MEDS: IV D5/0.45 NACL 1,000 ML IV PRN (04:21)
[2020-01-13] MEDS: MEROPENEM 1 G in IV NS 0.9% 100 ML IV SCH ×2 (05:10→17:54)
--- NOTE | 2020-01-13 06:40 | NUR ---
MS RN NOTES ALL NEEDS ATTENDED AND MET. ABLE TO REST AND SLEPT AT INTERVALS. PATIENT IN BED ALERT ORIENTED X 2-3. NO ACUTE DISTRESS NOTED. BREATHING UNLABORED. IV ACCESS PATENT AND INTACT, NO REDNESS OR SWELLING NOTED. RITCHIE CATHETER INTACT WITH DRAINING WELL. SURGICAL DRESSING CLEAN DRY AND INTACT. ON NGT CONNECTED TO WALL SUCTION. ALL NEEDS ANTICIPATED, SAFETY MEASURES IN PLACE, ASPIRATION PRECAUTION EMPHASIZED, CALL LIGHT WITH IN EASY REACH. WILL CONTINUE ENDORSE TO AM NURSE FOR CONTINUITY OF CARE.
[2020-01-13 07:45] LABS: BASOPHILS % (AUTO) 0.2 % (0.0-2.0); EOSINOPHILS % (AUTO) 0.6 % (0.0-6.0); HEMATOCRIT 44 % (39-51); HEMOGLOBIN 14.7 g/dL (13.5-17.5); LYMPHOCYTES # (AUTO) 0.8 /CMM (0.8-4.8); LYMPHOCYTES % (AUTO) 4.3 % (20.0-44.0); MEAN CORPUSCULAR HGB CONC 34 g/dl (31.0-36.0); MEAN CORPUSCULAR VOLUME 91 fL (80-96); MONOCYTES # (AUTO) 0.5 /CMM (0.1-1.30); MONOCYTES % (AUTO) 2.5 % (2.0-12.0); NEUTROPHILS # (AUTO) 16.9 /CMM (1.8-8.9); NEUTROPHILS % (AUTO) 92.4 % (43.0-81.0); PLATELET COUNT (AUTO) 256 /CMM (150-450); RED BLOOD CELL COUNT(AUTO) 4.84 MIL/uL (4.5-6.0); WHITE BLOOD COUNT (AUTO) 18.3 K/uL (4.3-11.0)
[2020-01-13 08:00] VITALS: BP 139/71
[2020-01-13 08:06] LABS: ALANINE AMINOTRANSFERASE 33 U/L (12-78); ALKALINE PHOSPHATASE 78 U/L (46-116); ASPARTATE AMINOTRANSFERASE 30 U/L (15-37); BILIRUBIN,TOTAL 0.7 mg/dL (0.2-1.0); CALCIUM, SERUM 7.9 mg/dL (8.5-10.1); CARBON DIOXIDE 22 mmol/L (21-32); CHLORIDE 106 mmol/L (98-107); CREATININE 2.4 mg/dL (0.6-1.3); GLUCOSE 172 mg/dL (74-106); MAGNESIUM 3.6 mg/dL (1.8-2.4); PHOSPHORUS 4.7 mg/dL (2.5-4.9); POTASSIUM 4.1 mmol/L (3.5-5.1); SODIUM SERUM 139 mmol/L (136-145); TOTAL PROTEIN, SERUM 5.8 g/dL (6.4-8.2); UREA NITROGEN, BLOOD 68 mg/dL (7-18)
[2020-01-13 08:11] LABS: CREATINE KINASE, TOTAL 41 U/L (39-308)
--- NOTE | 2020-01-13 08:29 | NUR ---
MS RN OPENING NOTES RECEIVED PATIENT IN BED, AWAKE, A/O X3. NO ACUTE DISTRESS NOTED. BREATHING UNLABORED. COMPLAINING OF ABDOMINLA PAIN; PATIENT IS DISTENDED. MD STOPPED BY AND SAW THE PATIENT. LIBAN MIDLINE IS INTACT AND PATENT INFUSING D5 1/2 NS AT 100 MLS/HR. RITCHIE CATHETER INTACT AND DRAINING WELL. SURGICAL DRESSING CLEAN DRY AND INTACT. ON NGT CONNECTED TO WALL SUCTION. SAFETY PRECAUTIONS IN PLACE; BED IN LOW POSITION AND LOCKED, RAILS UP X2, CALL LIGHT WITHIN REACH, HOB ELEVATED AT 45 DEGREES. WILL CONTINUE TO MONITOR PATIENT.
[2020-01-13] MEDS: ASPIRIN 81 MG TAB.CHEW PO SCH ×2 (09:00→09:36)
[2020-01-13] MEDS: ATORVASTATIN 10 MG TABLET PO SCH ×2 (09:00→09:36)
[2020-01-13] MEDS: DOCUSATE SODIUM 100 MG CAPSULE PO SCH ×2 (09:00→09:36)
[2020-01-13] MEDS: methylPREDNISolone SOD SUCC 125 MG/2ML VIAL IV SCH (09:36)
[2020-01-13] MEDS: PANTOPRAZOLE 40 MG VIAL IV SCH ×2 (09:36→21:10)
[2020-01-13] MEDS: ENOXAPARIN SODIUM 40 MG/0.4 ML DISP.SYRIN SQ SCH (09:37)
[2020-01-13 16:00] VITALS: BP 143/62
--- NOTE | 2020-01-13 17:15 | NUR ---
MS RN NOTES PATIENT ACCIDENTLY REMOVED HIS NG TUBE WHEN TRIED TO STAND UP. MD NOTIFIED; PER MD TUBE REINSERTED BACK AND PLACEMENT VERIFIED WITH AN X-RAY.
[2020-01-13] MEDS ORDERED: DIATR MEGLU/DIATRIZOATE SODIUM 30 ML BOTTLE (GASTROGRAPHIN) ONE (17:18)
--- NOTE | 2020-01-13 18:52 | NUR ---
MS RN CLOSING NOTES PATIENT IN BED, AWAKE, A/O X3. NO ACUTE DISTRESS NOTED. BREATHING UNLABORED. LIBAN MIDLINE IS INTACT AND PATENT INFUSING D5 1/2 NS AT 100 MLS/HR. RITCHIE CATHETER INTACT AND DRAINING WELL DARK YELLOW URINE. SURGICAL DRESSING CLEAN DRY AND INTACT. NG-TUBE CONNECTED TO WALL SUCTION NO DRAINAGE AMOUNT DURING THE SHIFT. ALL NEEDS ATTENDED TO THROUGHOUT THE DAY. SAFETY PRECAUTIONS REMAIN IN PLACE; BED IN LOW POSITION AND LOCKED, RAILS UP X2, CALL LIGHT WITHIN REACH, HOB ELEVATED AT 45 DEGREES. WILL ENDORSE TO NURSING HOME PHYSICIAN NURSE.
[2020-01-13 19:30] VITALS: BP 157/81
--- NOTE | 2020-01-13 19:45 | NUR ---
MS RN NOTES PATIENT IN BED, ASLEEP, ALERT AND ORIENTED X 3. BREATHING EVEN AND UNLABORED ON 4L NC, SHOWS NO SIGNS OF ACUTE RESPIRATORY DISTRESS, NO ACUTE PAIN. NG TUBE IN PLACE WITH INTERMITTENT SUCTION WITH 0 OUTPUT. LIBAN MIDLINE IS CLEAN DRY AND INTACT WITH D5 1/2 NS AT 100ML/HR. SHOWS NO SIGNS OF INFILTRATION, NO REDNESS. SAFETY PRECAUTIONS IN PLACE. BED IN LOWEST POSITION, LOCKED, AND CALL LIGHT KEPT WITHIN REACH. WILL CONTINUE TO MONITOR.
[2020-01-14] MEDS: ALBUTEROL FS 2.5 MG/0.5 ML VIAL.NEB NEB SCH ×8 (00:04→23:47)
[2020-01-14] MEDS: IV D5/0.45 NACL 1,000 ML IV PRN ×2 (00:41→13:35)
[2020-01-14] MEDS: MEROPENEM 1 G in IV NS 0.9% 100 ML IV SCH ×2 (05:36→17:38)
--- NOTE | 2020-01-14 06:34 | NUR ---
MS RN NOTES PATIENT IN BED, SLEPT THROUGHOUT NIGHT, ALERT AND ORIENTED X 3. BREATHING EVEN AND UNLABORED ON 4L NC, SHOWS NO SIGNS OF ACUTE RESPIRATORY DISTRESS, NO ACUTE PAIN. NG TUBE IN PLACE WITH INTERMITTENT SUCTION WITH 100ML/HR OUTPUT. LIBAN MIDLINE IS CLEAN DRY AND INTACT WITH D5 1/2 NS AT 100ML/HR. SHOWS NO SIGNS OF INFILTRATION, NO REDNESS. ALL DUE MEDICATIONS GIVEN. SAFETY PRECAUTIONS IN PLACE. BED IN LOWEST POSITION, LOCKED, AND CALL LIGHT KEPT WITHIN REACH. WILL ENDORSE TO ONCOMING NURSE.
--- NOTE | 2020-01-14 07:24 | NUR ---
MS RN OPENING NOTES RECEIVED PATIENT IN BED, AWAKE, A/O X3. NO ACUTE DISTRESS NOTED. BREATHING UNLABORED. NO COMPLAINS OF PAIN. LIBAN MIDLINE IS INTACT AND PATENT INFUSING D5 1/2 NS AT 100 MLS/HR. RITCHIE CATHETER INTACT AND DRAINING WELL. SURGICAL DRESSING CLEAN DRY AND INTACT. NG-TUBE CONNECTED TO WALL SUCTION. SAFETY PRECAUTIONS IN PLACE; BED IN LOW POSITION AND LOCKED, RAILS UP X2, CALL LIGHT WITHIN REACH, HOB ELEVATED AT 45 DEGREES. WILL CONTINUE TO MONITOR PATIENT.
[2020-01-14 08:00] VITALS: BP 144/71
[2020-01-14] MEDS: DOCUSATE SODIUM 100 MG CAPSULE PO SCH (08:02)
[2020-01-14] MEDS: ASPIRIN 81 MG TAB.CHEW PO SCH (08:02)
[2020-01-14] MEDS: ATORVASTATIN 10 MG TABLET PO SCH (08:02)
--- NOTE | 2020-01-14 08:38 | NUR ---
MS NOTES PATIENT HAS A PINK TINGED SUCTION. MD AWARE. AM LOVENOX SKIPPED. WILL CONTINUE TO MONITOR.
[2020-01-14] MEDS: ENOXAPARIN SODIUM 40 MG/0.4 ML DISP.SYRIN SQ SCH (08:40)
[2020-01-14 09:16] LABS: EOSINOPHILS % (AUTO) 0.1 % (0.0-6.0); HEMATOCRIT 45 % (39-51); HEMOGLOBIN 14.9 g/dL (13.5-17.5); LYMPHOCYTES # (AUTO) 0.8 /CMM (0.8-4.8); LYMPHOCYTES % (AUTO) 4.4 % (20.0-44.0); MEAN CORPUSCULAR HGB CONC 34 g/dl (31.0-36.0); MEAN CORPUSCULAR VOLUME 92 fL (80-96); MONOCYTES # (AUTO) 1.3 /CMM (0.1-1.30); MONOCYTES % (AUTO) 7.2 % (2.0-12.0); NEUTROPHILS # (AUTO) 16.5 /CMM (1.8-8.9); NEUTROPHILS % (AUTO) 88.3 % (43.0-81.0); PLATELET COUNT (AUTO) 210 /CMM (150-450); RED BLOOD CELL COUNT(AUTO) 4.84 MIL/uL (4.5-6.0); WHITE BLOOD COUNT (AUTO) 18.7 K/uL (4.3-11.0)
[2020-01-14] MEDS: methylPREDNISolone SOD SUCC 125 MG/2ML VIAL IV SCH (09:16)
[2020-01-14] MEDS: PANTOPRAZOLE 40 MG VIAL IV SCH ×2 (09:16→20:42)
[2020-01-14 09:55] LABS: CALCIUM, SERUM 7.9 mg/dL (8.5-10.1); CARBON DIOXIDE 23 mmol/L (21-32); CHLORIDE 106 mmol/L (98-107); GLUCOSE 122 mg/dL (74-106); MAGNESIUM 3.9 mg/dL (1.8-2.4); PHOSPHORUS 5.8 mg/dL (2.5-4.9); POTASSIUM 4.7 mmol/L (3.5-5.1); SODIUM SERUM 141 mmol/L (136-145)
[2020-01-14 09:59] LABS: UREA NITROGEN, BLOOD 80 mg/dL (7-18)
--- NOTE | 2020-01-14 10:32 | NUR ---
MS RN NOTES PATIENT REMOVED NG-TUBE AND REFUSES REINSERTION. CONTACTED DR SMALLWOOD OFFICE; WAITING FOR A CALL BACK W INSTRUCTIONS. ALSO LET THE ATTENDING PHYSICIAN KNOW (DR. DONAHUE) WILL CONTINUE TO MONITOR.
[2020-01-14 11:07] LABS: PTH, INTACT 34 pg/mL (15-65)
[2020-01-14 16:00] VITALS: BP 142/69
[2020-01-14 18:43] LABS: APPEARANCE,URINE CLEAR (CLEAR); BILIRUBIN,URINE NEGATIVE (NEGATIVE); BLOOD, URINE LARGE Ery/uL (NEGATIVE); COLOR,URINE YELLOW (YELLOW); KETONES,URINE NEGATIVE (NEGATIVE); LEUKOCYTE ESTERASE ,URINE NEGATIVE (NEGATIVE); NITRITE, URINE NEGATIVE (NEGATIVE); PH,URINE 5.5 (5.0-8.0); PROTEIN,URINE 30 mg/dl (NEGATIVE); UGLUCOSE NEGATIVE (NEGATIVE); UROBILINOGEN,URINE 0.2 EU/dL (0.2)
[2020-01-14 18:44] LABS: OCCULT BLOOD STOOL POSITIVE (NEGATIVE)
[2020-01-14 19:02] LABS: CREATININE, URINE 236.7 MG/DL (30.0-125.0); URINE SODIUM, RANDOM < 5 mmol/l (40-220); URINE TOTAL PROTEIN 140.3 mg/dL (0-11.9)
--- NOTE | 2020-01-14 19:03 | NUR ---
MS RN CLOSING NOTES PATIENT IN BED, AWAKE, A/O X3. NO ACUTE DISTRESS NOTED. BREATHING UNLABORED. NO COMPLAINS OF PAIN. LIBAN MIDLINE IS INTACT AND PATENT INFUSING D5 1/2 NS AT 100 MLS/HR. RITCHIE CATHETER INTACT AND DRAINING WELL. SURGICAL DRESSING CLEAN DRY AND INTACT. NG-TUBE CONNECTED TO WALL SUCTION (OUTPUT 100CC DURING SHIFT). ALL NEEDS ATTENDED TO THROUGHOUT THE DAY. SAFETY PRECAUTIONS REMAIN IN PLACE; BED IN LOW POSITION AND LOCKED, RAILS UP X2, CALL LIGHT WITHIN REACH, HOB ELEVATED AT 45 DEGREES. WILL ENDORSE TO WINE CELLAR WORKER NURSE.
[2020-01-14 19:38] LABS: BACTERIA,URINE 1+ /HPF (None Seen); RBC,URINE 21-50 /HPF (0-2); WBC,URINE 0-2 /HPF (0-3)
[2020-01-14 19:39] LABS: HYALINE CASTS, URINE Few /LPF (None Seen); MUCUS,URINE Few /LPF (None Seen); SQUAMOUS EPITHELIAL CELL,UR 0-2 /HPF (None Seen)
[2020-01-14 19:44] LABS: EOSINOPHIL,URINE None Seen
--- NOTE | 2020-01-14 19:48 | NUR ---
MS RN OPENING NOTES RECEIVED PATIENT RESTING IN BED COMFORTABLY; NO SOB NOTED; BREATHING EVEN AND UNLABORED; NG TUBE INTACT, COLLECTING 100ML OUTPUT; A/OX2-3, [place] SPEAKING, LANGUAGE BARRIER NOTED; PATIENT CAN RECEIVE ICE CHIPS; NPO STATUS MAINTAINED; LIBAN MIDLINE INTACT AND PATENT, FLUSHING WELL; NO S/S OF REDNESS OR INFILTRATION NOTED; INFUSING D51/2 NS @ 100ML/HR; R LEG PROSTHETIC NEAR BEDSIDE; SAFETY PRECAUTIONS IMPLEMENTED; BED LOCKED IN LOW POSITION; SIDE RAILS X2; CALL LIGHT WITHIN REACH; WILL CONTINUE TO MONITOR
[2020-01-14 20:00] VITALS: BP 133/61
--- NOTE | 2020-01-14 20:15 | NUR ---
MS RN NOTES DR. JAZMYNE SMALLWOOD AT BEDSIDE; NG TUBE REMOVED; PER DR. SMALLWOOD CT OF ABD & PELVIS W/O CONTRAST ORDERED; WILL LIMIT FLUIDS D/T POSSIBLE FLUID OVERLOAD, WHEEZING NOTED; RT AT BEDSIDE; WILL CONTINUE TO MONITOR
[2020-01-15] MEDS: ALBUTEROL FS 2.5 MG/0.5 ML VIAL.NEB NEB SCH ×6 (02:34→23:57)
[2020-01-15] MEDS: MEROPENEM 1 G in IV NS 0.9% 100 ML IV SCH ×2 (05:04→18:32)
[2020-01-15 06:10] LABS: *SPE A/G RATIO 0.8 (0.7-1.7); *SPE ALBUMIN 2.3 g/dL (2.9-4.4); *SPE ALPHA-1-GLOBULIN 0.4 g/dL (0.0-0.4); *SPE ALPHA-2-GLOBULIN 0.7 g/dL (0.4-1.0); *SPE GLOBULIN, TOTAL 2.9 g/dL (2.2-3.9); *SPE M-SPIKE Not Observed g/dL (Not Observed); *SPEGAMMA GLOBULIN 0.8 g/dL (0.4-1.8)
[2020-01-15 07:52] LABS: BASOPHILS % (AUTO) 0.1 % (0.0-2.0); EOSINOPHILS % (AUTO) 0.1 % (0.0-6.0); HEMATOCRIT 42 % (39-51); HEMOGLOBIN 14.1 g/dL (13.5-17.5); LYMPHOCYTES # (AUTO) 0.8 /CMM (0.8-4.8); LYMPHOCYTES % (AUTO) 3.8 % (20.0-44.0); MEAN CORPUSCULAR HGB CONC 33 g/dl (31.0-36.0); MEAN CORPUSCULAR VOLUME 91 fL (80-96); MONOCYTES # (AUTO) 1.5 /CMM (0.1-1.30); MONOCYTES % (AUTO) 6.9 % (2.0-12.0); NEUTROPHILS # (AUTO) 19.4 /CMM (1.8-8.9); NEUTROPHILS % (AUTO) 89.1 % (43.0-81.0); PLATELET COUNT (AUTO) 214 /CMM (150-450); RED BLOOD CELL COUNT(AUTO) 4.65 MIL/uL (4.5-6.0); WHITE BLOOD COUNT (AUTO) 21.7 K/uL (4.3-11.0)
[2020-01-15 08:00] VITALS: BP 136/68
--- NOTE | 2020-01-15 08:00 | NUR ---
MS RN NOTES PATIENT IN BED ALERT, ORIENTED X3. BED IN LOW LOCKED POSITION. CALL LIGHT WITHIN REACH. MIDLINE INTACT PATENT. WILL CONTINUE TO MONITOR.
[2020-01-15 08:20] LABS: ALANINE AMINOTRANSFERASE 34 U/L (12-78); ALBUMIN 2.1 g/dL (3.4-5.0); ALKALINE PHOSPHATASE 87 U/L (46-116); ASPARTATE AMINOTRANSFERASE 34 U/L (15-37); BILIRUBIN,TOTAL 0.7 mg/dL (0.2-1.0); CALCIUM, SERUM 8.3 mg/dL (8.5-10.1); CARBON DIOXIDE 22 mmol/L (21-32); CHLORIDE 108 mmol/L (98-107); CREATININE 2.9 mg/dL (0.6-1.3); GLUCOSE 118 mg/dL (74-106); IRON, SERUM 97 ug/dl (50-175); MAGNESIUM 3.9 mg/dL (1.8-2.4); PHOSPHORUS 6.1 mg/dL (2.5-4.9); POTASSIUM 4.4 mmol/L (3.5-5.1); SODIUM SERUM 144 mmol/L (136-145); TOTAL IRON BINDING CAPACITY 246 ug/dl (250-450); TOTAL PROTEIN, SERUM 5.9 g/dL (6.4-8.2)
[2020-01-15 08:22] LABS: UREA NITROGEN, BLOOD 92 mg/dL (7-18)
[2020-01-15 08:28] LABS: CREATINE KINASE, TOTAL 44 U/L (39-308)
[2020-01-15 08:45] LABS: FREE PSA 1.86 ng/mL (0.00-45); PROSTATE SPECIFIC ANTIGEN SCR 11.89 ng/mL (0.00-4.00)
[2020-01-15] MEDS: ASPIRIN 81 MG TAB.CHEW PO SCH (09:00)
[2020-01-15] MEDS: DOCUSATE SODIUM 100 MG CAPSULE PO SCH (09:00)
[2020-01-15] MEDS: ATORVASTATIN 10 MG TABLET PO SCH (09:00)
[2020-01-15] MEDS: methylPREDNISolone SOD SUCC 125 MG/2ML VIAL IV SCH (09:33)
[2020-01-15] MEDS: PANTOPRAZOLE 40 MG VIAL IV SCH ×2 (09:33→21:04)
[2020-01-15] MEDS: ENOXAPARIN SODIUM 40 MG/0.4 ML DISP.SYRIN SQ SCH (09:34)
[2020-01-15] MEDS: IV D5/0.45 NACL 1,000 ML IV PRN (14:26)
[2020-01-15 16:00] VITALS: BP 140/67
[2020-01-15] MEDS ORDERED: FEE PK DOSING 1 MIN EA MC ONE (18:50)
--- NOTE | 2020-01-15 19:05 | NUR ---
RN borasurbarby opening notes Received Pt from morning nurse. Pt is resting in bed comfortably. Pt is alert and orientedX3. Pt speaks [place]ian and able to make needs known. Respiration is normal in 4 L NC. No SOB. No S/S of distress noted. LIBAN midline is clean, intact, patent and infusing well D5 1/2 NS@ 100 ml/hr. Alfaro cath is intact, patent and draining yellow urine. Pt's status is NPO. Pt can receive one cup of ice chips. R leg prosthetic at the bedside. Safety precautions is maintained. Bed at low position, brakes locked, side rails upX3 and call light is within reach. Will continue to monitor.
--- NOTE | 2020-01-15 19:20 | NUR ---
MS RN NOTES PATIENT IN BED SLEEPING NO SOB OR ACUTE DISTRESS NOTED. ALL DUE MEDICATIONS ADMINISTERED. ALL NEEDS MET. NO ACUTE CHANGES NOTED DURING AM SHIFT. ENDORSED CARE TO PM SHIFT.
[2020-01-15 20:00] VITALS: BP 136/67
[2020-01-15] MEDS ORDERED: VANCOMYCIN 1 GM in IV D5W 250 ML IV SCH (20:00)
--- NOTE | 2020-01-15 23:38 | NUR ---
RN medsurg notes Per ID Doctor Shelia, remove midline and send the tip for culture and start new peripheral iv. Two attempts made to start iv, pt has fragile veins and refused another attempt at iv. Informed and notified charge nurse and coal handling supervisor. Informed Teri OGDEN, and received order for a new midline. Orders carried out.
[2020-01-16] MEDS: ALBUTEROL FS 2.5 MG/0.5 ML VIAL.NEB NEB SCH ×6 (03:45→23:22)
[2020-01-16] MEDS: MEROPENEM 1 G in IV NS 0.9% 100 ML IV SCH ×2 (05:02→17:33)
--- NOTE | 2020-01-16 06:52 | NUR ---
RN medsurg closing notes Pt is resting in bed comfortably. Pt is alert and orientedX3. Respiration is normal in 4 L NC. No SOB. No S/S of distress noted. LIBAN midline is clean, intact, patent and infusing well D5 1/2 NS@ 100 ml/hr. Alfaro cath is intact, patent and draining yellow urine. VS is stable. Afebrile. Pt's status is NPO. All routine meds were given as ordered. Safety precautions is maintained. Bed at low position, brakes locked, side rails upX3 and call light is within reach. Will endorse to morning nurse for YARA.
[2020-01-16 07:06] LABS: AFP, TUMOR MARKER 4.3 ng/mL (0.0-8.3)
--- NOTE | 2020-01-16 07:07 | NUR ---
MS RN OPENING NOTES RECEIVED PT IN BED AWAKE AT THIS TIME. AO X3. NO SOB NOTED. NO S/S OF ANY ACUTE DISTRESS NOTED AT THIS TIME. PT ON SUPPLEMENTAL OXYGEN 4LPM VIA NC. NO C/O PAIN AT THIS TIME. PT ON NPO STATUS. LIBAN MIDLINE INTACT AND PATENT INFUSING D5 1/2 NS @ 100ML/HR. RIGHT LEG PROSTHETIC AT BEDSIDE. RITCHIE CATHETER IN PLACE, DRAINING TO GRAVITY CLEAR YELLOW URINE OUTPUT. HOB ELEVATED TO SEMI FOWLERS POSITION, BED IN LOWEST LOCKED POSITION, BED ALARM ON, SIDE RAILS UP, CALL LIGHT WITHIN REACH. WILL CONTINUE TO MONITOR
[2020-01-16 07:12] LABS: CARBON DIOXIDE 22 mmol/L (21-32); CHLORIDE 108 mmol/L (98-107); CREATININE 2.1 mg/dL (0.6-1.3); GLUCOSE 116 mg/dL (74-106); POTASSIUM 4.2 mmol/L (3.5-5.1); SODIUM SERUM 141 mmol/L (136-145)
[2020-01-16 07:14] LABS: BASOPHILS % (AUTO) 0.1 % (0.0-2.0); HEMATOCRIT 42 % (39-51); HEMOGLOBIN 13.8 g/dL (13.5-17.5); LYMPHOCYTES # (AUTO) 0.8 /CMM (0.8-4.8); LYMPHOCYTES % (AUTO) 3.6 % (20.0-44.0); MEAN CORPUSCULAR HGB CONC 33 g/dl (31.0-36.0); MEAN CORPUSCULAR VOLUME 91 fL (80-96); MONOCYTES # (AUTO) 1.8 /CMM (0.1-1.30); MONOCYTES % (AUTO) 7.9 % (2.0-12.0); NEUTROPHILS # (AUTO) 20.3 /CMM (1.8-8.9); NEUTROPHILS % (AUTO) 88.4 % (43.0-81.0); PLATELET COUNT (AUTO) 198 /CMM (150-450); RED BLOOD CELL COUNT(AUTO) 4.56 MIL/uL (4.5-6.0)
[2020-01-16 07:16] LABS: UREA NITROGEN, BLOOD 87 mg/dL (7-18)
--- NOTE | 2020-01-16 07:29 | NUR ---
PT REFUSED RESP TX FOR THE DAY, NO S/S OF SOB NOTED ATT. HR 81 SPO2 % 97 RELIEF DRILLER AT BEDSIDE Addendum: 01/16/20 at 0731 by ANDREW PEREZ RT Amended: Links added.
[2020-01-16 08:14] VITALS: BP 142/62
[2020-01-16] MEDS: ENOXAPARIN SODIUM 40 MG/0.4 ML DISP.SYRIN SQ SCH (09:07)
[2020-01-16] MEDS: ASPIRIN 81 MG TAB.CHEW PO SCH (09:10)
[2020-01-16] MEDS: PANTOPRAZOLE 40 MG VIAL IV SCH ×2 (09:11→22:43)
[2020-01-16] MEDS: methylPREDNISolone SOD SUCC 125 MG/2ML VIAL IV SCH (09:11)
[2020-01-16] MEDS: ATORVASTATIN 10 MG TABLET PO SCH (09:11)
[2020-01-16] MEDS: DOCUSATE SODIUM 100 MG CAPSULE PO SCH (09:11)
[2020-01-16 10:00] VITALS: BP 142/62
[2020-01-16] MEDS: BUDESONIDE RESPULE INH 0.25 MG/2 ML AMPUL.NEB NEB SCH ×2 (10:00→19:44)
--- NOTE | 2020-01-16 10:12 | NUR ---
PATIENT FAMILY CALLED TO FIND OUT ABOUT ADVANCING PATIENT'S DIET FROM NPO. JAMEEL MONTENEGRO AND MURALI HILLS NP MADE AWARE OF PATIENT'S ELEVATED WBC OF 23.0 AND FAMILYS' CONCERN ON PATIENT'S NPO STATUS.
--- NOTE | 2020-01-16 10:19 | NUR ---
PER JAMEEL MONTENEGRO, INFECTION DISEASE IS ON THE CASE FOR ELEVATED WBC OF 23.0
--- NOTE | 2020-01-16 11:19 | NUR ---
PER JAMEEL MONTENEGRO, ADVANCE PT ON CLEAR LIQUIDS FOR LUNCH AND FULL LIQUIDS FOR DINNER AND PROCEED WITH SOFT DIET TOLERATED. ORDERS CONFINED AND WILL BE CARRIED OUT. WILL CONTINUE TO MONITOR
--- NOTE | 2020-01-16 11:26 | NUR ---
PER DR FAULKNER, PATIENT SCHEDULED FOR PHYSICAL THERAPY. PHYSICAL THERAPIST [place]O, WAS MADE AWARE. WILL CONTINUE TO MONITOR AND FOLLOW UP
[2020-01-16] MEDS: IPRATROPIUM NEB FS 0.5 MG/2.5 ML AMPUL.NEB NEB SCH ×4 (11:27→23:22)
--- NOTE | 2020-01-16 14:09 | NUR ---
JAMEEL HILLS, MADE AWARE TO RECONCILE PATIENT'S MEDS
--- NOTE | 2020-01-16 14:10 | NUR ---
PATIENT TOLERATED CLEAR LIQUIDS WELL AT LUNCH WITH NO S/S OF ASPIRATIONS NOTED. WILL ADVANCE TO FULL LIQUIDS AT DINNER PER JAMEEL MONTENEGRO ORDERS. WILL CONTINUE TO MONITOR
--- NOTE | 2020-01-16 14:17 | NUR ---
PER PT, PATIENT REFUSED TO TRANSFER AND WALK DUE TO PATIENT RECOMMENDING THAT HIS LEG NEEDS TO BE WRAPPED OVERNIGHT
[2020-01-16 17:20] VITALS: BP 140/78
--- NOTE | 2020-01-16 19:05 | NUR ---
MS RN CLOSING NOTES PT IN BED AWAKE AT THIS TIME. AO X3. PT REMAINED STABLE THOUGH OUT SHIFT. NO SOB NOTED. NO S/S OF ANY ACUTE DISTRESS NOTED AT THIS TIME. PT KEPT CLEAN AND DRY. RIGHT LEG PROSTHETIC AT BEDSIDE. RITCHIE CATHETER IN PLACE, DRAINING TO GRAVITY CLEAR YELLOW URINE OUTPUT. HOB ELEVATED TO SEMI FOWLERS POSITION, BED IN LOWEST LOCKED POSITION, BED ALARM ON, SIDE RAILS UP, CALL LIGHT WITHIN REACH. WILL ENDORSE TO NIGHT NURSE FOR YARA
--- NOTE | 2020-01-16 19:46 | NUR ---
RN OPEN NOTES PATIENT IS LAYING IN BED. BED IS IN LOWEST LOCKED POSITION WITH SIDE RAILS UP, SEMI FOWLERS. NO COMPLAINTS OF PAIN AT THE MOMENT/ APPEARS COMFORTABLE. NO SOB/ ACUTE RESPIRATORY DISTRESS NOTED. CALL LIGHT IS WITHIN REACH. WAS TOLD FROM AM NURSE TO REMOVE MIDLINE AND SEND TIP TO LAB FOR TESTING. AM STAFF TRIED TO INSERT IV LINE PRIOR TO REMOVAL OF MIDLINE HOWEVER WAS UNSUCCESSFUL DUE TO HIM BEING A HARD STICK. THEREFORE MIDLINE IS STILL IN PLACE. WILL TRY TO INSERT IV DURING PM SHIFT.
[2020-01-16 20:00] VITALS: BP 143/78
[2020-01-16] MEDS: VANCOMYCIN 1 GM in IV D5W 250 ML IV SCH (20:46)
[2020-01-16 20:51] VITALS: BP 143/78
[2020-01-17] MEDS: ALBUTEROL FS 2.5 MG/0.5 ML VIAL.NEB NEB SCH ×6 (03:10→23:30)
[2020-01-17] MEDS: IPRATROPIUM NEB FS 0.5 MG/2.5 ML AMPUL.NEB NEB SCH ×6 (03:10→23:30)
[2020-01-17] MEDS: MEROPENEM 1 G in IV NS 0.9% 100 ML IV SCH ×2 (05:09→17:29)
--- NOTE | 2020-01-17 06:47 | NUR ---
RN CLOSE NOTES PATIENT IS LAYING IN BED. BED IS IN LOWEST LOCKED POSITION WITH SIDE RAILS UP X2, SEMI FOWLERS. ALL DUE ANTIBIOTICS HAVE BEEN GIVEN. A/O X3-4. MIDLINE IN LIBAN IS PATENT AND INTACT. WAS NOT ABLE TO FIND GOOD ENOUGH VEIN/ INSERT NEW IV, SO MIDLINE IS STILL IN PLACE. CALL LIGHT IS WITHIN REACH. NO SOB/ ACUTE RESPIRATORY DISTRESS NOTED. WILL ENDORSE TO AM NURSE.
--- NOTE | 2020-01-17 07:26 | NUR ---
RN NOTES NOTIFIED JOSE RAMON REGARDING PATIENT'S MIDLINE. NOTIFIED HER THAT NO ONE IN THE DAY SHIFT (01/15) WELL DRUG ROOM CLERK WERE ABLE TO INSERT NEW IV. THEREFORE, WE'RE UNABLE TO REMOVE MIDLINE TO SEND TIP TO LAB FOR CULTURE. MIDLINE IS STILL IN PLACE TO INFUSE SCHEDULED ANTIBIOTICS.
--- NOTE | 2020-01-17 07:28 | NUR ---
MS RN NOTES PATIENT IN BED ALERT ORIENTED X 3. NO ACUTE DISTRESS NOTED. BREATHING UNLABORED. NO SOB NOTED. IV ACCESS PATENT AND INTACT, NO REDNESS, NO SWELLING NOTED. RITCHIE CATHETER INTACT DRAINING WELL. SAFETY MEASURES IN PLACE. CALL LIGHT WITHIN REACH. WILL CONTINUE TO MONITOR ACCORDINGLY.
[2020-01-17] MEDS: BUDESONIDE RESPULE INH 0.25 MG/2 ML AMPUL.NEB NEB SCH ×2 (07:37→19:45)
[2020-01-17 07:41] LABS: BASOPHILS % (AUTO) 0.1 % (0.0-2.0); EOSINOPHILS % (AUTO) 0.2 % (0.0-6.0); HEMATOCRIT 42 % (39-51); HEMOGLOBIN 14.2 g/dL (13.5-17.5); LYMPHOCYTES % (AUTO) 4.3 % (20.0-44.0); MEAN CORPUSCULAR HGB CONC 34 g/dl (31.0-36.0); MEAN CORPUSCULAR VOLUME 90 fL (80-96); MONOCYTES % (AUTO) 8.6 % (2.0-12.0); NEUTROPHILS # (AUTO) 20.1 /CMM (1.8-8.9); NEUTROPHILS % (AUTO) 86.8 % (43.0-81.0); PLATELET COUNT (AUTO) 203 /CMM (150-450); RED BLOOD CELL COUNT(AUTO) 4.67 MIL/uL (4.5-6.0); WHITE BLOOD COUNT (AUTO) 23.1 K/uL (4.3-11.0)
--- NOTE | 2020-01-17 08:07 | NUR ---
MS RN NOTES UNABLE TO START NEW IV LINE, CURRENT MIDLINE NEEDS TO BE REMOVED TO SEND SPECIMEN TO LABORATORY PER INFECTIOUS DISEASE, NOTIFIED MURALI DELAROSA EDITORIAL ASSISTANT WITH NEW ORDERS FOR MIDLINE INSERTION, NOTED AND CARRIED OUT. NOTIFIED KD BURCHBLUEBERRY GROWER , SHE APPROVED AND WILL NOTIFY MIDLINE NURSE.
[2020-01-17 08:08] LABS: CALCIUM, SERUM 8.2 mg/dL (8.5-10.1); CARBON DIOXIDE 22 mmol/L (21-32); CHLORIDE 108 mmol/L (98-107); GLUCOSE 116 mg/dL (74-106); POTASSIUM 4.5 mmol/L (3.5-5.1); SODIUM SERUM 141 mmol/L (136-145)
[2020-01-17 08:21] LABS: UREA NITROGEN, BLOOD 84 mg/dL (7-18)
[2020-01-17 08:32] VITALS: BP 136/72
[2020-01-17] MEDS: ENOXAPARIN SODIUM 40 MG/0.4 ML DISP.SYRIN SQ SCH (08:56)
[2020-01-17] MEDS: ATORVASTATIN 10 MG TABLET PO SCH (08:56)
[2020-01-17] MEDS: ASPIRIN 81 MG TAB.CHEW PO SCH (08:56)
[2020-01-17] MEDS: DOCUSATE SODIUM 100 MG CAPSULE PO SCH (08:56)
[2020-01-17] MEDS: PANTOPRAZOLE 40 MG VIAL IV SCH ×2 (08:56→21:46)
--- NOTE | 2020-01-17 11:30 | NUR ---
MS RN NOTES INSERTED NEW MIDLINE ON LEFT UPPER ARM G 18 BY PICC LINE NURSE DUY , WITH TRANSPARENT DRESSING. PATIENT TOLERATED WELL.
--- NOTE | 2020-01-17 12:00 | NUR ---
MS RN NOTES REMOVED MIDLINE ON RIGHT UPPER ARM, PATIENT TOLERATED WELL. TIP OF MIDLINE COLLECTED , CALLED LABORATORY FOR BAGGING MACHINE OPERATOR SPOKED WITH JASON SAID THEY WILL BAGGING MACHINE OPERATOR AND PLACE SPECIMEN AT [facility].
[2020-01-17 16:09] VITALS: BP 122/78
--- NOTE | 2020-01-17 18:54 | NUR ---
MS RN NOTES PATIENT IN BED ALERT ORIENTED X 3. NO ACUTE DISTRESS NOTED. BREATHING UNLABORED. NO SOB NOTED. IV ACCESS PATENT AND INTACT, NO REDNESS, NO SWELLING NOTED. RITCHIE CATHETER INTACT DRAINING WELL. NEEDS ATTENDED AND ANTICIPATED. KEPT COMFORTABLE. SAFETY MEASURES IN PLACE. CALL LIGHT WITHIN REACH. PATIENT REFUSED PHYSICAL THERAPY DESPITE OF EXPLANATION OF RISKS AND BENEFITS AND ENCOURAGEMENT. WILL ENDORSE TO NIGHT NURSE FOR CONTINUITY OF CARE.
--- NOTE | 2020-01-17 19:10 | NUR ---
MS RN NOTES RECEIVED PT IN BED AWAKE AND ABLE TO MAKE NEEDS KNOWN. PT A/O X2-3. RESPIRATIONS EVEN AND UNLABORED WITH NO S/S OF ACUTE DISTRESS OR SOB NOTED. NO COMPLAINTS OF PAIN AT THIS TIME. PT NOTED WITH LONI MIDLINE INFUSING D5 1/2 NS @100CC/HR. #20G PATENT AND INTACT AND SL. SAFETY MEASURES IN PLACE WITH BED IN LOWEST LOCKED POSITION WITH SIDE RAILS UPX2. CALL LIGHT WITHIN REACH. WILL CONTINUE TO MONITOR.
[2020-01-17] MEDS: IV D5/0.45 NACL 1,000 ML IV PRN (19:57)
[2020-01-17] MEDS: VANCOMYCIN 1 GM in IV D5W 250 ML IV SCH (20:44)
[2020-01-17 20:52] VITALS: BP 146/71
[2020-01-18] MEDS: ALBUTEROL FS 2.5 MG/0.5 ML VIAL.NEB NEB SCH ×6 (03:30→22:45)
[2020-01-18] MEDS: IPRATROPIUM NEB FS 0.5 MG/2.5 ML AMPUL.NEB NEB SCH ×6 (03:30→22:45)
[2020-01-18] MEDS: MEROPENEM 1 G in IV NS 0.9% 100 ML IV SCH ×2 (06:22→17:47)
--- NOTE | 2020-01-18 07:21 | NUR ---
MS RN NOTES PT IN BED AWAKE AND ABLE TO MAKE NEEDS KNOWN. PT A/O X2-3. RESPIRATIONS EVEN AND UNLABORED WITH NO S/S OF ACUTE DISTRESS OR SOB NOTED THROUGHOUT SHIFT. PT KEPT CLEAN, DRY, AND COMFORTABLE. NO COMPLAINTS OF PAIN AT THIS TIME. PT NOTED WITH LONI MIDLINE INFUSING D5 1/2 NS @100CC/HR. #20G PATENT AND INTACT AND SL. SAFETY MEASURES IN PLACE WITH BED IN LOWEST LOCKED POSITION WITH SIDE RAILS UPX2. CALL LIGHT WITHIN REACH. WILL ENDORSE TO ONCOMING NURSE FOR YARA.
[2020-01-18 07:58] LABS: CALCIUM, SERUM 7.7 mg/dL (8.5-10.1); CARBON DIOXIDE 23 mmol/L (21-32); CHLORIDE 106 mmol/L (98-107); CREATININE 1.9 mg/dL (0.6-1.3); GLUCOSE 122 mg/dL (74-106); SODIUM SERUM 137 mmol/L (136-145)
[2020-01-18 08:00] VITALS: BP 116/69
[2020-01-18 08:12] LABS: UREA NITROGEN, BLOOD 84 mg/dL (7-18)
[2020-01-18] MEDS: BUDESONIDE RESPULE INH 0.25 MG/2 ML AMPUL.NEB NEB SCH ×2 (08:35→19:30)
[2020-01-18 08:44] LABS: BASOPHILS % (AUTO) 0.1 % (0.0-2.0); EOSINOPHILS % (AUTO) 0.4 % (0.0-6.0); HEMATOCRIT 41 % (39-51); HEMOGLOBIN 13.5 g/dL (13.5-17.5); LYMPHOCYTES # (AUTO) 1.2 /CMM (0.8-4.8); LYMPHOCYTES % (AUTO) 5.5 % (20.0-44.0); MEAN CORPUSCULAR HGB CONC 33 g/dl (31.0-36.0); MEAN CORPUSCULAR VOLUME 91 fL (80-96); MONOCYTES % (AUTO) 9.4 % (2.0-12.0); NEUTROPHILS % (AUTO) 84.6 % (43.0-81.0); PLATELET COUNT (AUTO) 195 /CMM (150-450); RED BLOOD CELL COUNT(AUTO) 4.48 MIL/uL (4.5-6.0); WHITE BLOOD COUNT (AUTO) 21.2 K/uL (4.3-11.0)
[2020-01-18] MEDS: IV D5/0.45 NACL 1,000 ML IV PRN (08:54)
[2020-01-18] MEDS: DOCUSATE SODIUM 100 MG CAPSULE PO SCH (08:54)
[2020-01-18] MEDS: ASPIRIN 81 MG TAB.CHEW PO SCH (08:55)
[2020-01-18] MEDS: ENOXAPARIN SODIUM 40 MG/0.4 ML DISP.SYRIN SQ SCH (08:55)
[2020-01-18] MEDS: PANTOPRAZOLE 40 MG VIAL IV SCH ×2 (08:55→21:48)
[2020-01-18] MEDS: ATORVASTATIN 10 MG TABLET PO SCH (08:55)
--- NOTE | 2020-01-18 09:34 | NUR ---
MS RN NOTES PATIENT SEEN AND EVALUATED BY PROFESSOR OF ENVIRONMENTAL STUDIES MURALI DELAROSA WITH NEW ORDERS FOR ENSURE ENLIVE 237 ML LIQUID TID WITH MEALS , ORDER CLARIFIED AND READ BACK WITH PROFESSOR OF ENVIRONMENTAL STUDIES, NOTED AND CARRIED OUT.
[2020-01-18] MEDS: ENSURE ENLIVE 237 ML LIQUID (VANILLA) PO SCH ×2 (13:13→17:47)
--- NOTE | 2020-01-18 18:47 | NUR ---
MS RN NOTES PATIENT IN BED ALERT ORIENTED X 3. NO ACUTE DISTRESS NOTED. BREATHING UNLABORED. NO SOB NOTED. IV ACCESS PATENT AND INTACT, NO REDNESS, NO SWELLING NOTED. RITCHIE CATHETER INTACT DRAINING WELL. NEEDS ATTENDED AND ANTICIPATED. KEPT COMFORTABLE. SAFETY MEASURES IN PLACE. CALL LIGHT WITHIN REACH. WILL ENDORSE TO NIGHT NURSE FOR CONTINUITY OF CARE.
--- NOTE | 2020-01-18 19:10 | NUR ---
MS RN NOTES RECEIVED PT IN BED AWAKE AND ABLE TO MAKE NEEDS KNOWN. PT A/O X2-3. RESPIRATIONS EVEN AND UNLABORED WITH NO S/S OF ACUTE DISTRESS OR SOB NOTED. PT KEPT CLEAN, DRY, AND COMFORTABLE. NO COMPLAINTS OF PAIN AT THIS TIME. PT NOTED WITH LONI MIDLINE INFUSING D5 1/2 NS @100CC/HR. #20G PATENT AND INTACT AND SL. SAFETY MEASURES IN PLACE WITH BED IN LOWEST LOCKED POSITION WITH SIDE RAILS UPX2. CALL LIGHT WITHIN REACH. WILL CONTINUE TO MONITOR.
[2020-01-18] MEDS: ONDANSETRON HCL/PF 4 MG/2 ML VIAL IVP PRN (19:59)
[2020-01-18] MEDS: MORPHINE SULFATE INJ 2 MG/ML DISP.SYRIN IV PRN (20:00)
[2020-01-18 20:30] VITALS: BP 129/69
[2020-01-18] MEDS: VANCOMYCIN 1 GM in IV D5W 250 ML IV SCH (20:42)
[2020-01-19] MEDS: IPRATROPIUM NEB FS 0.5 MG/2.5 ML AMPUL.NEB NEB SCH ×6 (02:32→23:30)
[2020-01-19] MEDS: ALBUTEROL FS 2.5 MG/0.5 ML VIAL.NEB NEB SCH ×6 (02:32→23:30)
[2020-01-19 04:40] VITALS: BP 128/72
--- NOTE | 2020-01-19 04:50 | NUR ---
MS RN NOTES PT VOMITED ABOUT 60CC OF BLOOD. VVS. MADE AWARE. ORDER NPO, CONTINUE PROTONIX 40MG IV Q12 HRS, AND AWAIT AM LABS. WILL CONTINUE TO MONITOR.
[2020-01-19] MEDS: MEROPENEM 1 G in IV NS 0.9% 100 ML IV SCH (06:49)
--- NOTE | 2020-01-19 07:19 | NUR ---
MS RN NOTES PT IN BED AWAKE AND ABLE TO MAKE NEEDS KNOWN. PT A/O X2-3. RESPIRATIONS EVEN AND UNLABORED WITH NO S/S OF ACUTE DISTRESS OR SOB NOTED THROUGHOUT SHIFT. PT KEPT CLEAN, DRY, AND COMFORTABLE. PT KEPT CLEAN, DRY, AND COMFORTABLE. PT NOTED WITH LONI MIDLINE INFUSING D5 1/2 NS @100CC/HR. #20G PATENT AND INTACT AND SL. SAFETY MEASURES IN PLACE WITH BED IN LOWEST LOCKED POSITION WITH SIDE RAILS UPX2. CALL LIGHT WITHIN REACH. WILL ENDORSE TO ONCOMING NURSE FOR YARA.
[2020-01-19 07:37] LABS: BASOPHILS % (AUTO) 0.2 % (0.0-2.0); EOSINOPHILS % (AUTO) 0.4 % (0.0-6.0); HEMATOCRIT 38 % (39-51); LYMPHOCYTES % (AUTO) 4.8 % (20.0-44.0); MEAN CORPUSCULAR HGB CONC 34 g/dl (31.0-36.0); MEAN CORPUSCULAR VOLUME 91 fL (80-96); MONOCYTES # (AUTO) 1.6 /CMM (0.1-1.30); MONOCYTES % (AUTO) 7.8 % (2.0-12.0); NEUTROPHILS # (AUTO) 17.9 /CMM (1.8-8.9); NEUTROPHILS % (AUTO) 86.8 % (43.0-81.0); PLATELET COUNT (AUTO) 198 /CMM (150-450); RED BLOOD CELL COUNT(AUTO) 4.16 MIL/uL (4.5-6.0); WHITE BLOOD COUNT (AUTO) 20.6 K/uL (4.3-11.0)
[2020-01-19 07:39] LABS: CALCIUM, SERUM 7.6 mg/dL (8.5-10.1); CARBON DIOXIDE 21 mmol/L (21-32); CHLORIDE 104 mmol/L (98-107); CREATININE 2.4 mg/dL (0.6-1.3); GLUCOSE 141 mg/dL (74-106); POTASSIUM 4.4 mmol/L (3.5-5.1); SODIUM SERUM 135 mmol/L (136-145)
[2020-01-19 07:41] LABS: UREA NITROGEN, BLOOD 94 mg/dL (7-18)
[2020-01-19 08:00] VITALS: BP 135/69
[2020-01-19] MEDS: ENSURE ENLIVE 237 ML LIQUID (VANILLA) PO SCH ×3 (08:00→17:04)
--- NOTE | 2020-01-19 08:00 | NUR ---
MS RN NOTES PT IN BED AWAKE AND ABLE TO MAKE NEEDS KNOWN. PT A/O X2-3. RESPIRATIONS EVEN AND UNLABORED WITH NO S/S OF ACUTE DISTRESS OR SOB NOTED. PT KEPT CLEAN, DRY, AND COMFORTABLE. PT KEPT CLEAN, DRY, AND COMFORTABLE. PT NOTED WITH LONI MIDLINE INFUSING D5 1/2 NS @100CC/HR. #20G PATENT AND INTACT AND SL. SAFETY MEASURES IN PLACE WITH BED IN LOWEST LOCKED POSITION WITH SIDE RAILS UPX2. CALL LIGHT WITHIN REACH.
[2020-01-19] MEDS: BUDESONIDE RESPULE INH 0.25 MG/2 ML AMPUL.NEB NEB SCH ×2 (08:01→19:30)
[2020-01-19] MEDS: DOCUSATE SODIUM 100 MG CAPSULE PO SCH (09:00)
[2020-01-19] MEDS: ASPIRIN 81 MG TAB.CHEW PO SCH (09:00)
[2020-01-19] MEDS: ATORVASTATIN 10 MG TABLET PO SCH (09:00)
[2020-01-19] MEDS: PANTOPRAZOLE 40 MG VIAL IV SCH ×2 (09:01→21:25)
[2020-01-19] MEDS: ENOXAPARIN SODIUM 40 MG/0.4 ML DISP.SYRIN SQ SCH (09:02)
[2020-01-19] MEDS: IV D5/0.45 NACL 1,000 ML IV PRN ×2 (09:03→19:54)
--- NOTE | 2020-01-19 13:00 | NUR ---
DR OLIVER CAME TO SEE THE PT AND MADE AWARE OF PT VOMITING BLOOD LAST NIGHT WITH ORDERS MADE AND CARRIED OUT. NO NAUSEA,VOMITING AT THIS TIME.
[2020-01-19] MEDS: METOCLOPRAMIDE HCL 10 MG/2 ML VIAL IV SCH ×2 (13:13→18:06)
[2020-01-19 15:39] LABS: APPEARANCE,URINE CLEAR (CLEAR); BILIRUBIN,URINE NEGATIVE (NEGATIVE); BLOOD, URINE LARGE Ery/uL (NEGATIVE); COLOR,URINE YELLOW (YELLOW); KETONES,URINE TRACE (NEGATIVE); LEUKOCYTE ESTERASE ,URINE NEGATIVE (NEGATIVE); NITRITE, URINE NEGATIVE (NEGATIVE); PROTEIN,URINE 30 mg/dl (NEGATIVE); UGLUCOSE NEGATIVE (NEGATIVE); UROBILINOGEN,URINE 0.2 EU/dL (0.2)
[2020-01-19 16:00] VITALS: BP 125/61
[2020-01-19 16:09] LABS: BACTERIA,URINE 1+ /HPF (None Seen); RBC,URINE 21-50 /HPF (0-2); SQUAMOUS EPITHELIAL CELL,UR 0-2 /HPF (None Seen); WBC,URINE 0-2 /HPF (0-3); YEAST,URINE Few /HPF (None Seen)
[2020-01-19 16:11] LABS: URINE TOTAL PROTEIN 95.4 mg/dL (0-11.9)
[2020-01-19 16:13] LABS: EOSINOPHIL,URINE None Seen
[2020-01-19 16:23] LABS: URINE SODIUM, RANDOM < 5 mmol/l (40-220)
[2020-01-19] MEDS ORDERED: PANTOPRAZOLE 40 MG VIAL IV SCH (17:00)
--- NOTE | 2020-01-19 19:00 | NUR ---
PT RESTING IN BED SLEEPING BUT AROUSABLE .DENIES DISCOMFORT, NAUSEA OR VOMITING.RITCHIE CATH DRAINING WITH DARK YELLOW URINE. ENCOURAGED TO AMBULATE BUT PT SAYS HE IS TIRED.CALL LIGHT PLACED WITHIN REACH.
[2020-01-19 19:15] LABS: HEMOGLOBIN 12.5 g/dL (13.5-17.5)
[2020-01-19 20:00] VITALS: BP 126/63
[2020-01-19] MEDS: MORPHINE SULFATE INJ 2 MG/ML DISP.SYRIN IV PRN (20:30)
[2020-01-20] MEDS: METOCLOPRAMIDE HCL 10 MG/2 ML VIAL IV SCH ×4 (01:44→19:26)
[2020-01-20] MEDS: IPRATROPIUM NEB FS 0.5 MG/2.5 ML AMPUL.NEB NEB SCH ×6 (03:30→23:30)
[2020-01-20] MEDS: ALBUTEROL FS 2.5 MG/0.5 ML VIAL.NEB NEB SCH ×6 (03:30→23:30)
[2020-01-20] MEDS: IV D5/0.45 NACL 1,000 ML IV PRN (06:41)
[2020-01-20 07:09] LABS: BASOPHILS % (AUTO) 0.2 % (0.0-2.0); EOSINOPHILS % (AUTO) 0.5 % (0.0-6.0); HEMATOCRIT 36 % (39-51); HEMOGLOBIN 12.4 g/dL (13.5-17.5); LYMPHOCYTES # (AUTO) 1.1 /CMM (0.8-4.8); MEAN CORPUSCULAR HGB CONC 35 g/dl (31.0-36.0); MEAN CORPUSCULAR VOLUME 91 fL (80-96); MONOCYTES # (AUTO) 1.4 /CMM (0.1-1.30); NEUTROPHILS # (AUTO) 20.2 /CMM (1.8-8.9); NEUTROPHILS % (AUTO) 88.3 % (43.0-81.0); PLATELET COUNT (AUTO) 181 /CMM (150-450); RED BLOOD CELL COUNT(AUTO) 3.97 MIL/uL (4.5-6.0); WHITE BLOOD COUNT (AUTO) 22.8 K/uL (4.3-11.0)
[2020-01-20 07:24] LABS: ALANINE AMINOTRANSFERASE 30 U/L (12-78); ALKALINE PHOSPHATASE 93 U/L (46-116); ASPARTATE AMINOTRANSFERASE 34 U/L (15-37); BILIRUBIN,TOTAL 0.7 mg/dL (0.2-1.0); CALCIUM, SERUM 7.9 mg/dL (8.5-10.1); CARBON DIOXIDE 21 mmol/L (21-32); CHLORIDE 105 mmol/L (98-107); GLUCOSE 125 mg/dL (74-106); MAGNESIUM 2.9 mg/dL (1.8-2.4); PHOSPHORUS 4.8 mg/dL (2.5-4.9); POTASSIUM 4.8 mmol/L (3.5-5.1); SODIUM SERUM 137 mmol/L (136-145); TOTAL PROTEIN, SERUM 5.7 g/dL (6.4-8.2)
[2020-01-20 07:27] LABS: UREA NITROGEN, BLOOD 100 mg/dL (7-18)
[2020-01-20] MEDS: BUDESONIDE RESPULE INH 0.25 MG/2 ML AMPUL.NEB NEB SCH ×2 (07:56→19:15)
[2020-01-20 08:00] VITALS: BP 115/60
[2020-01-20] MEDS: ENSURE ENLIVE 237 ML LIQUID (VANILLA) PO SCH ×3 (08:00→16:57)
--- NOTE | 2020-01-20 08:00 | NUR ---
RN NOTES RECEIVED PATIENT IN THE ROOM ON O2-4LNC, NO ACUTE RESPIRATORY DISTRESS,KEEP HOB ELEVATED, PATIENT NPO EXCEPT MEDS. PATIENT HAS GENERALIZED EDEMA , RIGHT LEG AMPUTEE UPPER KNEE. F/C DRAINING TEA COLOR OUTPUT, ASSIST PATIENT TURN AND REPOSTION Q2 HR, PATIENT WAS COMPLAINING OF PAIN ON ABDOMEN, BOWEL SOUND PRESENT FOUR QUADRANT OF ABDOMEN, IV ACCESS ON LEFT UA MIDLINE INTACT, INFUSING D51/2 NS AT 100 ML/HR INTACT. ADMINISTERED SCHEDULED MEDICATION, NEEDS ATTENDED AND ANTICIPATED. CALL LIGHT WITHIN TO REACH. PLAN IS ASIST PATIENT GET OUT OF BED. SEEN HOSPITALIST. CONTINUED MONITORING.
[2020-01-20] MEDS: ASPIRIN 81 MG TAB.CHEW PO SCH ×2 (08:10→10:44)
[2020-01-20] MEDS: ATORVASTATIN 10 MG TABLET PO SCH (09:00)
[2020-01-20] MEDS ORDERED: IV LR 500 ML IV SCH (10:30)
[2020-01-20] MEDS: METOPROLOL TARTRATE INJ 5 MG/5 ML AMPUL IVP PRN (10:34)
[2020-01-20] MEDS: ONDANSETRON HCL/PF 4 MG/2 ML VIAL IVP PRN (10:43)
[2020-01-20] MEDS: MORPHINE SULFATE INJ 2 MG/ML DISP.SYRIN IV PRN ×2 (10:44→16:42)
--- NOTE | 2020-01-20 10:44 | NUR ---
rn notes administered morphine sulfate 0.5 mg/ml iv push for abdominal pain 02/12 PER PATIENT REQUEST,, v/s taken bp 115/60, p-65, r-17, also administered scheduled medication, patient has generalized edema, keep HOB elevated, was complaining OF NAUSEA, ASSIST TURN AND REPOSITION Q 2 HR. In fusing lr 500 ml on 150 ml/hr per nephrologists order.CONTINUED MONITORING.
[2020-01-20] MEDS: DOCUSATE SODIUM 100 MG CAPSULE PO SCH (10:54)
[2020-01-20] MEDS ORDERED: IV LR 1,000 ML IV SCH (11:04)
[2020-01-20] MEDS ORDERED: IV LR 1000 ML 1,000 ML IV ONE (11:30)
[2020-01-20 16:00] VITALS: BP 110/58
[2020-01-20] MEDS: FLUCONAZOLE (100 MG) 100 MG TABLET PO SCH (16:41)
--- NOTE | 2020-01-20 16:42 | NUR ---
RN NOTES ADMINISTERED MORPHINE SULFATE 1 MG/ML IV PUSH FOR PAIN ABDOMEN 03/14 PER PATIENT REQUEST, V/S [id number], P-90, R-19. CONTINUED MONITORING.
--- NOTE | 2020-01-20 18:30 | NUR ---
RN NOTES ASSIST PATIENT GET OUT OF BED SITTING IN THE CHAIR, UNABLE TO AMBULATE PATIENT, BECAUSE OF EDEMA RIGHT THIGH PROSTATE LEG DOESN'T FEET. MEDICATION WERE ADMINISTERED FOR PAIN EFFECTIVE, F/C DRAINING TEA COLOR OUTPUT. PATIENT FEEL WEAKNESS, ON O2-4LNC. CALL LIGHT WITHIN TO REACH. ENDORSED ONCOMING NURSE FOLLOW PLAN OF CARE.
--- NOTE | 2020-01-20 19:10 | NUR ---
MS RN NOTES RECEIVED PT IN BED AWAKE AND ABLE TO MAKE NEEDS KNOWN. PT A/O X2-3. RESPIRATIONS EVEN AND UNLABORED WITH NO S/S OF ACUTE DISTRESS OR SOB NOTED. NO COMPLAINTS OF PAIN AT THIS TIME. PT NOTED WITH LONI MIDLINE SL. SAFETY MEASURES IN PLACE WITH BED IN LOWEST LOCKED POSITION WITH SIDE RAILS UPX2. CALL LIGHT WITHIN REACH. WILL CONTINUE TO MONITOR.
[2020-01-20 20:00] VITALS: BP 114/59
[2020-01-20] MEDS: FAMOTIDINE/PF INJ 20 MG/2 ML VIAL IV SCH (21:40)
--- NOTE | 2020-01-20 21:40 | NUR ---
MS RN NOTES PT REFUSED PHOTOS AT THIS TIME. WILL CONTINUE TO MONITOR.
[2020-01-21] MEDS: METOCLOPRAMIDE HCL 10 MG/2 ML VIAL IV SCH ×4 (02:08→21:27)
[2020-01-21] MEDS: ALBUTEROL FS 2.5 MG/0.5 ML VIAL.NEB NEB SCH ×6 (03:31→22:56)
[2020-01-21] MEDS: IPRATROPIUM NEB FS 0.5 MG/2.5 ML AMPUL.NEB NEB SCH ×6 (03:31→22:56)
[2020-01-21] MEDS: BUDESONIDE RESPULE INH 0.25 MG/2 ML AMPUL.NEB NEB SCH ×2 (07:22→19:30)
[2020-01-21 07:30] VITALS: BP 138/64
--- NOTE | 2020-01-21 07:36 | NUR ---
MS RN NOTES PT IN BED AWAKE AND ABLE TO MAKE NEEDS KNOWN. PT A/O X2-3. RESPIRATIONS EVEN AND UNLABORED WITH NO S/S OF ACUTE DISTRESS OR SOB NOTED THROUGHOUT SHIFT. PT KEPT CLEAN, DRY, AND COMFORTABLE. PT KEPT CLEAN, DRY, AND COMFORTABLE. PT NOTED WITH LONI MIDLINE SL. SAFETY MEASURES IN PLACE WITH BED IN LOWEST LOCKED POSITION WITH SIDE RAILS UPX2. CALL LIGHT WITHIN REACH. WILL ENDORSE TO ONCOMING NURSE FOR YARA.
[2020-01-21 07:41] LABS: ALANINE AMINOTRANSFERASE 29 U/L (12-78); ALBUMIN 1.9 g/dL (3.4-5.0); ALKALINE PHOSPHATASE 93 U/L (46-116); ASPARTATE AMINOTRANSFERASE 33 U/L (15-37); BILIRUBIN,TOTAL 0.8 mg/dL (0.2-1.0); CARBON DIOXIDE 20 mmol/L (21-32); CHLORIDE 105 mmol/L (98-107); CREATININE 2.6 mg/dL (0.6-1.3); GLUCOSE 83 mg/dL (74-106); MAGNESIUM 2.7 mg/dL (1.8-2.4); PHOSPHORUS 5.5 mg/dL (2.5-4.9); POTASSIUM 5.2 mmol/L (3.5-5.1); SODIUM SERUM 138 mmol/L (136-145); TOTAL PROTEIN, SERUM 5.5 g/dL (6.4-8.2)
[2020-01-21] MEDS: ENSURE ENLIVE 237 ML LIQUID (VANILLA) PO SCH ×3 (07:42→17:26)
[2020-01-21 07:43] LABS: UREA NITROGEN, BLOOD 104 mg/dL (7-18)
[2020-01-21 07:47] LABS: BASOPHILS % (AUTO) 0.1 % (0.0-2.0); EOSINOPHILS % (AUTO) 0.8 % (0.0-6.0); HEMATOCRIT 35 % (39-51); HEMOGLOBIN 11.8 g/dL (13.5-17.5); LYMPHOCYTES # (AUTO) 0.7 /CMM (0.8-4.8); LYMPHOCYTES % (AUTO) 3.1 % (20.0-44.0); MEAN CORPUSCULAR HGB CONC 34 g/dl (31.0-36.0); MEAN CORPUSCULAR VOLUME 91 fL (80-96); MONOCYTES # (AUTO) 0.9 /CMM (0.1-1.30); MONOCYTES % (AUTO) 4.2 % (2.0-12.0); NEUTROPHILS # (AUTO) 20.6 /CMM (1.8-8.9); NEUTROPHILS % (AUTO) 91.8 % (43.0-81.0); PLATELET COUNT (AUTO) 169 /CMM (150-450); RED BLOOD CELL COUNT(AUTO) 3.78 MIL/uL (4.5-6.0); WHITE BLOOD COUNT (AUTO) 22.5 K/uL (4.3-11.0)
--- NOTE | 2020-01-21 08:00 | NUR ---
RN OPENING NOTES RECEIVED PATIENT RESTING IN BED, A/O X2-3 , IN STABLE CONDITION, NO DISTRESS NOTED AT THIS TIME. PATIENT IS REFUSING BREATHING AT THIS TIME DUE TO SIDE EFFECTS, PROVIDED EDUCATION, PATIENT IS AFRAID OF BEING NAUSEOUS, ADMINISTERED REGLAN ORDERED, RT WILL TRY AGAIN IN 20 MIN. PATIENT IS CLEAN AND DRY, SAFETY MEASURES IN PLACE, CALL LIGHT WITHIN REACH, WILL CONTINUE TO MONITOR CLOSELY.
[2020-01-21] MEDS: ATORVASTATIN 10 MG TABLET PO SCH (09:48)
[2020-01-21] MEDS: FLUCONAZOLE (100 MG) 100 MG TABLET PO SCH (09:48)
[2020-01-21] MEDS: SENNOSIDES/DOCUSATE SODIUM 1 TAB TABLET PO SCH (09:48)
[2020-01-21] MEDS: DOCUSATE SODIUM 100 MG CAPSULE PO SCH (09:48)
[2020-01-21] MEDS: FAMOTIDINE/PF INJ 20 MG/2 ML VIAL IV SCH ×2 (09:48→21:27)
--- NOTE | 2020-01-21 10:34 | NUR ---
MS/RN Patient received Patient received from SELENA Sanchez.
--- NOTE | 2020-01-21 11:00 | NUR ---
MS/RN PT Seen by PT - out of bed, refusing to use prostheses to ambulate despite explanation and education.
--- NOTE | 2020-01-21 14:32 | NUR ---
MS/RN S/B Tomas Israel Seen by PATIENT SUPPORT ASSISTANT - CT abdo ordered for tomorrow morning to evaluate for ileus.
[2020-01-21 16:00] VITALS: BP 144/71
--- NOTE | 2020-01-21 17:44 | NUR ---
MS/RN Lactic acid Lactic acid 1.8
--- NOTE | 2020-01-21 17:56 | NUR ---
MS/transmission and protection engineer reconciliation DIRECTOR OF TECHNOLOGY made aware that medication reconciliation still needs to be completed.
--- NOTE | 2020-01-21 18:20 | NUR ---
MS/RN End note Seen by Dr Robison - continue to encourage to ambulate as much as pain will allow. Continue with NPO status until KUB tomorrow. All needs addressed, all questions answered, will endorse to retail shift supervisor.
--- NOTE | 2020-01-21 19:30 | NUR ---
MS RN OPENING NOTE RECEIVED PATIENT IN BED. A/OX3, ABLE TO MAKE BASIC NEEDS KNOWN. ON OXYGEN 3L/MIN VIA NASAL CANNULA. RESPIRATIONS ARE EVEN AND UNLABORED. NO S/S SOB NOTED. NO C/O PAIN AT THIS TIME. IN NO APPARENT DISTRESS. IV ACCESS IN LONI MILDLINE PATENT AND SALINE LOCKED. BED IS LOW AND LOCKED, HOB ELEVATED IN SEMI FOWLERS, SIDE RIALS UP X2, CALL LIGHT WITHIN REACH. WILL CONTINUE TO MONITOR.
[2020-01-21 20:00] VITALS: BP 128/58
[2020-01-22] MEDS: METOCLOPRAMIDE HCL 10 MG/2 ML VIAL IV SCH ×4 (01:34→18:08)
[2020-01-22] MEDS: IPRATROPIUM NEB FS 0.5 MG/2.5 ML AMPUL.NEB NEB SCH ×6 (03:30→23:21)
[2020-01-22] MEDS: ALBUTEROL FS 2.5 MG/0.5 ML VIAL.NEB NEB SCH ×6 (03:30→23:21)
[2020-01-22] MEDS: BUDESONIDE RESPULE INH 0.25 MG/2 ML AMPUL.NEB NEB SCH ×2 (07:32→19:30)
--- NOTE | 2020-01-22 07:36 | NUR ---
MS RN CLOSING NOTE PATIENT IN BED. A/OX3, ABLE TO MAKE BASIC NEEDS KNOWN. REMAINS ON OXYGEN 3L/MIN VIA NASAL CANNULA. RESPIRATIONS ARE EVEN AND UNLABORED. NO SOB NOTED. NO C/O PAIN. NO DISTRESS. IV ACCESS MAINTAINED IN LONI MILDLINE PATENT AND SALINE LOCKED. BED REMAINS LOW AND LOCKED, HOB ELEVATED IN SEMI FOWLERS, SIDE RIALS UP X2, CALL LIGHT WITHIN REACH. WILL ENDORSE TO NEXT SHIFT.
[2020-01-22] MEDS: ENSURE ENLIVE 237 ML LIQUID (VANILLA) PO SCH ×3 (07:41→17:00)
[2020-01-22 08:00] VITALS: BP 126/60
[2020-01-22 08:00] LABS: BASOPHILS # (AUTO) 0.1 /CMM (0.0-0.2); BASOPHILS % (AUTO) 0.7 % (0.0-2.0); EOSINOPHILS % (AUTO) 0.6 % (0.0-6.0); HEMATOCRIT 34 % (39-51); HEMOGLOBIN 11.7 g/dL (13.5-17.5); LYMPHOCYTES # (AUTO) 0.8 /CMM (0.8-4.8); LYMPHOCYTES % (AUTO) 3.7 % (20.0-44.0); MEAN CORPUSCULAR HGB CONC 35 g/dl (31.0-36.0); MEAN CORPUSCULAR VOLUME 91 fL (80-96); NEUTROPHILS # (AUTO) 18.7 /CMM (1.8-8.9); PLATELET COUNT (AUTO) 133 /CMM (150-450); RED BLOOD CELL COUNT(AUTO) 3.74 MIL/uL (4.5-6.0); WHITE BLOOD COUNT (AUTO) 20.7 K/uL (4.3-11.0)
--- NOTE | 2020-01-22 08:00 | NUR ---
MS RN OPENING NOTE RECEIVED PATIENT IN BED. A/OX3, ENGLISH SPEAKING BUT ABLE TO UNDERSTAND AND SPEAK EMIRATI WELL. ABLE TO MAKE BASIC NEEDS KNOWN. NO CARDAIC OR RESPIRATORY DISTRESS NOTED. NO SOB NOTED. SATURATING WELL ON SUPPLEMENTAL O2 AT 97%. RESPIRATIONS ARE EVEN AND UNLABORED. IV ACCESS IN LONI MIDLINE INTACT AND PATENT AND SFLUSHING WELL. PT NOTED WITH A R BKA. STUMP IS INTACT. WITH OLD SURGICAL SITE. SAFETY PRECAUTIONS IN PLACE. BED IS LOW AND LOCKED, HOB ELEVATED IN SEMI FOWLERS, SIDE RIALS UP X2, CALL LIGHT WITHIN REACH. WILL CONTINUE TO MONITOR
[2020-01-22] MEDS: ASPIRIN 81 MG TAB.CHEW PO SCH (08:38)
[2020-01-22] MEDS: DOCUSATE SODIUM 100 MG CAPSULE PO SCH (08:38)
[2020-01-22] MEDS: FAMOTIDINE/PF INJ 20 MG/2 ML VIAL IV SCH ×2 (08:38→21:16)
[2020-01-22] MEDS: MORPHINE SULFATE INJ 2 MG/ML DISP.SYRIN IV PRN (08:38)
[2020-01-22] MEDS: FLUCONAZOLE (100 MG) 100 MG TABLET PO SCH (08:39)
[2020-01-22] MEDS: SIMETHICONE 80 MG TAB.CHEW PO SCH ×2 (08:39→16:47)
[2020-01-22] MEDS: ATORVASTATIN 10 MG TABLET PO SCH (08:39)
[2020-01-22] MEDS: SENNOSIDES/DOCUSATE SODIUM 1 TAB TABLET PO SCH (08:39)
--- NOTE | 2020-01-22 09:30 | NUR ---
SEEN BY LAN JORGENSEN PT SEEN BY LAN JORGENSEN THIS AM, PER LAN FIELD PT NPO, BUT OKAY WITH MINIMAL WATER OR ICE CHIPS WITH MEDS.
--- NOTE | 2020-01-22 10:00 | NUR ---
SEEN BY MURALI JORGENSEN PT SEEN BY MURALI DELAROSA. MADE AWARE OF K LEVELS FROM YESTERDAY AT 5.2. AWAITING FOR TODAYS BMP RESULTS. PER MURALI, ITS OKAY. NNO FOR NOW. ALSO NOTIFIED MURALI JORGENSEN OF CHEST XRAY AND KUB THAT WAS DONE TODAY.
[2020-01-22 11:42] LABS: CALCIUM, SERUM 8.1 mg/dL (8.5-10.1); CARBON DIOXIDE 20 mmol/L (21-32); CHLORIDE 103 mmol/L (98-107); CREATININE 1.9 mg/dL (0.6-1.3); GLUCOSE 77 mg/dL (74-106); POTASSIUM 4.9 mmol/L (3.5-5.1); SODIUM SERUM 135 mmol/L (136-145)
[2020-01-22 11:43] LABS: UREA NITROGEN, BLOOD 102 mg/dL (7-18)
[2020-01-22] MEDS: IV NS 0.9% 1,000 ML IV PRN (13:38)
[2020-01-22 16:00] VITALS: BP 116/52
[2020-01-22] MEDS: BISACODYL SUPP (10 MG) 10 MG/SUPP.RECT SUPP.RECT RC PRN (16:47)
--- NOTE | 2020-01-22 19:30 | NUR ---
MS RN CLOSING NOTE PATIENT IN BED. ASLEEP BUT AROUSABLE. A/OX3, SPANISH SPEAKING BUT ABLE TO UNDERSTAND AND SPEAK TOGOLESE WELL. ABLE TO MAKE BASIC NEEDS KNOWN. NO CARDIAC OR RESPIRATORY DISTRESS NOTED. NO SOB NOTED. SATURATING WELL ON SUPPLEMENTAL O2 AT 97% WITH 3L VIA NC. RESPIRATIONS ARE EVEN AND UNLABORED. IV ACCESS IN LONI MIDLINE INTACT AND PATENT AND FLUSHING WELL. IV FLUIDS RUNNING WITH NS AT 50ML/HR. TOLERATING IV FLUIDS WELL. PT NOTED WITH A R BKA. STUMP IS INTACT. WITH OLD SURGICAL SITE. SAFETY PRECAUTIONS IN PLACE. BED IS LOW AND LOCKED, HOB ELEVATED IN SEMI FOWLERS, SIDE RIALS UP X2, CALL LIGHT WITHIN REACH. ENDORSED TO SALES TEAM MEMBER NURSE.
--- NOTE | 2020-01-22 19:45 | NUR ---
RN NOTES RECEIVED PATIENT IN BED. ALERT / ORIENTED X3, ARABIC SPEAKING BUT ABLE TO UNDERSTAND AND SPEAK FRISIAN WELL. ABLE TO MAKE BASIC NEEDS KNOWN. NO CARDIAC OR RESPIRATORY DISTRESS NOTED. NO SOB NOTED. SATURATING WELL ON SUPPLEMENTAL O2 AT 96%. RESPIRATIONS ARE EVEN AND UNLABORED. IV ACCESS IN LONI MIDLINE INTACT AND PATENT AND FLUSHING WELL. PT NOTED WITH A R BKA. STUMP IS INTACT. WITH OLD SURGICAL SITE. SAFETY PRECAUTIONS IN PLACE. ASPIRATION PRECAUTION EMPHASIZED. BED IS LOW AND LOCKED, HOB ELEVATED IN SEMI FOWLERS, SIDE RIALS UP X2, CALL LIGHT WITHIN EASY REACH. REPOSITIONED FOR COMFORT. WILL CONTINUE TO MONITOR ACCORDINGLY.
[2020-01-22 20:09] VITALS: BP 138/62
[2020-01-22 20:49] VITALS: BP 138/62
[2020-01-23] MEDS: METOCLOPRAMIDE HCL 10 MG/2 ML VIAL IV SCH ×4 (02:01→19:26)
[2020-01-23] MEDS: IPRATROPIUM NEB FS 0.5 MG/2.5 ML AMPUL.NEB NEB SCH ×7 (03:30→23:12)
[2020-01-23] MEDS: ALBUTEROL FS 2.5 MG/0.5 ML VIAL.NEB NEB SCH ×7 (03:30→23:12)
--- NOTE | 2020-01-23 06:41 | NUR ---
RN NOTES ALL NEEDS ATTENDED AND MET. ABLE TO REST AND SLEPT AT INTERVALS, PATIENT IN BED. ALERT / ORIENTED X3, NO SOB NOTED. SATURATING WELL ON SUPPLEMENTAL O2 AT 96%. RESPIRATIONS ARE EVEN AND UNLABORED. IV ACCESS IN LONI MIDLINE INTACT AND PATENT AND FLUSHING WELL. PT WITH A R BKA. STUMP IS INTACT. WITH OLD SURGICAL SITE. SAFETY PRECAUTIONS IN PLACE. ASPIRATION PRECAUTION EMPHASIZED. BED IS LOW AND LOCKED, HOB ELEVATED IN SEMI FOWLERS, SIDE RIALS UP X2, CALL LIGHT WITHIN EASY REACH. REPOSITIONED FOR COMFORT. WILL ENDORSE TO AM NURSE FOR CONTINUITY OF CARE.
--- NOTE | 2020-01-23 07:05 | NUR ---
MS RN OPENING NOTE RECEIVED PT IN BED, AWAKE AT THIS TIME. A/OX3,PT ABLE TO VERBALIZE NEEDS. NO SOB NOTED NO C/O PAIN AT THIS TIME. NO S/S OF ANY ACUTE DISTRESS NOTED. RESPIRATIONS ARE EVEN AND UNLABORED WITH EQUAL RISE AND FALL IN CHEST. LONI MIDLINE, INTACT AND PATENT. PT ON SUPPLEMENTAL OXYGEN 3LPM VIA NC. RED UPPER ARM BRUISE NOTED, RIGHT BKA, STUMP INTACT RAPPED WITH CAROL BANDAGE. RIGHT PROSTHETIC LEG NOTED AT BED SIDE. BED IN LOWEST LOCKED, SIDE RAILS UP, BED ALARM ON, HOB ELEVATED TO SEMI FOWLERS POSITION, CALL LIGHTS WITHIN REACH. WILL ENDORSE TO TOOLMAKER HELPER NURSE FOR YARA
[2020-01-23] MEDS: BUDESONIDE RESPULE INH 0.25 MG/2 ML AMPUL.NEB NEB SCH ×2 (07:45→19:30)
[2020-01-23 08:00] VITALS: BP_SYST 123; BP_SYST 163; BP_DIAS 60; BP_DIAS 83
[2020-01-23] MEDS: ENSURE ENLIVE 237 ML LIQUID (VANILLA) PO SCH ×3 (08:22→17:24)
[2020-01-23 08:35] LABS: ALANINE AMINOTRANSFERASE 25 U/L (12-78); ALBUMIN 1.9 g/dL (3.4-5.0); ALKALINE PHOSPHATASE 88 U/L (46-116); ASPARTATE AMINOTRANSFERASE 43 U/L (15-37); BILIRUBIN,TOTAL 0.8 mg/dL (0.2-1.0); CALCIUM, SERUM 8.1 mg/dL (8.5-10.1); CARBON DIOXIDE 20 mmol/L (21-32); CHLORIDE 109 mmol/L (98-107); CREATININE 1.5 mg/dL (0.6-1.3); GLUCOSE 61 mg/dL (74-106); MAGNESIUM 2.6 mg/dL (1.8-2.4); PHOSPHORUS 4.7 mg/dL (2.5-4.9); POTASSIUM 5.3 mmol/L (3.5-5.1); SODIUM SERUM 142 mmol/L (136-145); TOTAL PROTEIN, SERUM 5.7 g/dL (6.4-8.2)
[2020-01-23 08:36] LABS: BASOPHILS # (AUTO) 0.1 /CMM (0.0-0.2); BASOPHILS % (AUTO) 0.3 % (0.0-2.0); EOSINOPHILS % (AUTO) 0.9 % (0.0-6.0); HEMATOCRIT 32 % (39-51); HEMOGLOBIN 11.1 g/dL (13.5-17.5); LYMPHOCYTES # (AUTO) 0.8 /CMM (0.8-4.8); LYMPHOCYTES % (AUTO) 4.3 % (20.0-44.0); MEAN CORPUSCULAR HGB CONC 35 g/dl (31.0-36.0); MEAN CORPUSCULAR VOLUME 93 fL (80-96); MONOCYTES % (AUTO) 5.4 % (2.0-12.0); NEUTROPHILS % (AUTO) 89.1 % (43.0-81.0); PLATELET COUNT (AUTO) 146 /CMM (150-450); RED BLOOD CELL COUNT(AUTO) 3.45 MIL/uL (4.5-6.0); WHITE BLOOD COUNT (AUTO) 17.9 K/uL (4.3-11.0)
[2020-01-23 08:40] LABS: UREA NITROGEN, BLOOD 87 mg/dL (7-18)
[2020-01-23] MEDS: DOCUSATE SODIUM 100 MG CAPSULE PO SCH (09:11)
[2020-01-23] MEDS: SENNOSIDES/DOCUSATE SODIUM 1 TAB TABLET PO SCH (09:11)
[2020-01-23] MEDS: FLUCONAZOLE (100 MG) 100 MG TABLET PO SCH (09:12)
[2020-01-23] MEDS: ASPIRIN 81 MG TAB.CHEW PO SCH (09:12)
[2020-01-23] MEDS: SIMETHICONE 80 MG TAB.CHEW PO SCH ×2 (09:12→17:24)
[2020-01-23] MEDS: FAMOTIDINE/PF INJ 20 MG/2 ML VIAL IV SCH ×2 (09:13→21:44)
[2020-01-23] MEDS: ATORVASTATIN 10 MG TABLET PO SCH (09:13)
[2020-01-23] MEDS: IV NS 0.9% 1,000 ML IV PRN (09:43)
--- NOTE | 2020-01-23 10:43 | NUR ---
PT OUT OF ROOM FOR XR SMALL HERB FOLLOW THROUGH. TRANSPORTED BY BED WITH ACLS PROTOCOL IN PLACE
[2020-01-23] MEDS ORDERED: DIATR MEGLU/DIATRIZOATE SODIUM 120 ML BOTTLE (GASTROGRAPHIN) ONE (10:59)
--- NOTE | 2020-01-23 11:30 | NUR ---
PT POTASSIUM AT 5.3, DR ESTRADA MADE AWARE AND PHARMACY MADE AWARE
--- NOTE | 2020-01-23 13:45 | NUR ---
P[T RETURNED FROM PROCEDURE (XRAY OF SMALL BOWEL FOLLOW THROUGH.) PT VOMITING YELLOW LIQUID VOMIT OF 110ML. LAN, WASH OPERATOR MADE AWARE, PER LAN, KEEP PT STRICTLY NPO. ZOFRAN ADMINISTERED. WILL CONTINUE TO MONITOR
[2020-01-23] MEDS: ONDANSETRON HCL/PF 4 MG/2 ML VIAL IVP PRN (13:46)
--- NOTE | 2020-01-23 15:05 | NUR ---
PT HAS REDNESS ON LONI. PICTURE TAKEN AND FILED IN CHART
[2020-01-23 16:00] VITALS: BP 130/64
--- NOTE | 2020-01-23 17:00 | NUR ---
PT GROIN/PENIS AREA AROUNF RITCHIE CATHETER IS SWOLLEN. DR ESTRADA MADE AWARE. WILL CONTINUE TO MONITOR
--- NOTE | 2020-01-23 19:07 | NUR ---
MS RN CLOSING NOTE PT IN BED, AWAKE AT THIS TIME. PT REMAINED STABLE THROUGHOUT SHIFT. PT ABLE TO VERBALIZE NEEDS. NO SOB NOTED. NO C/O PAIN AT THIS TIME. ALL NEEDS ATTENDED TO PER ORDER. PT KEPT CLEAN AND DRY. RITCHIE CATHETER DRAINING TO GRAVITY CLEAR YELLOW URINE OUTPUT 550ML. BED IN LOWEST LOCKED, SIDE RAILS UP, BED ALARM ON, HOB ELEVATED TO SEMI FOWLERS POSITION, CALL LIGHTS WITHIN REACH. WILL ENDORSE TO MUD MIXER NURSE FOR YARA
--- NOTE | 2020-01-23 19:10 | NUR ---
MS/RN OPENING NOTES: RECEIVED REPORT FROM RN IMMACULATE. PT IN BED, AWAKE. A/OX3. MALAWIAN SPEAKING, BUT ABLE TO UNDERSTAND THAI. ABLE TO VERBALIZE NEEDS. NO SOB NOTED. NO C/O PAIN AT THIS TIME. RITCHIE CATHETER DRAINING TO GRAVITY CLEAR YELLOW URINE OUTPUT. BED IN LOWEST LOCKED, SIDE RAILS UP, BED ALARM ON, HOB ELEVATED TO SEMI FOWLERS POSITION, CALL LIGHTS WITHIN REACH. WILL CONTINUE MONITORING ACCORDINGLY.
--- NOTE | 2020-01-23 19:48 | NUR ---
MS/RN NOTES: RT AT BEDSIDE, PT. REFUSED BREATHING TREATMENT. EXPLAINED RISKS AND BENEFITS X3. WILL CONTINUE TO MONITOR.
[2020-01-23 20:39] VITALS: BP 102/66
--- NOTE | 2020-01-23 20:56 | NUR ---
MS/RN NOTES: RECEIVED ORDER FROM AYANA ESTRADA. "OBTAIN CONSENT FOR EGD, POSSIBLE DILATION OF THE ESOPHAGEAL GASTRIC JUNCTION, BIOPSY AND OR CAUTERIZATION" PT. REFUSED TO SIGN CONSENT AT THIS TIME. INFORMED PT ABOUT NG TUBE INSERTION. PT. ALSO REFUSED. EXPLAINED ALL RISKS AND BENEFITS, PT STILL REFUSED.
--- NOTE | 2020-01-23 21:58 | NUR ---
MS/RN NOTES: CONTACTED DR. AYANA ESTRADA REGARDING PT'S REFUSAL ON NG TUBE INSERTION AND REFUSAL TO SIGN THE CONSENT FOR THE EGD, POSSIBLE DILATATION OF THE ESOPHAGEAL GASTRIC JUNCTION, BIOPSY AND OR CAUTERIZATION. PER DR. AYANA ESTRADA "HOLD THE NGT FOR NOW, EDD (PT'S SON) WILL BE THERE TOMORROW TO SIGN FOR HIM BETWEEN 5PM- 7PM. KEEP THE CONSENT AVAILABLE.. ALREADY ARRANGED WITH KD THE NURSING SLAB LIFTING SUPERVISOR.".
[2020-01-24] MEDS: METOCLOPRAMIDE HCL 10 MG/2 ML VIAL IV SCH ×4 (01:28→18:23)
[2020-01-24] MEDS: IPRATROPIUM NEB FS 0.5 MG/2.5 ML AMPUL.NEB NEB SCH ×6 (03:30→23:30)
[2020-01-24] MEDS: ALBUTEROL FS 2.5 MG/0.5 ML VIAL.NEB NEB SCH ×6 (03:30→23:30)
--- NOTE | 2020-01-24 03:30 | NUR ---
MS/RN NOTES: RT AT BEDSIDE. PT REFUSES BREATHING TREATMENTS AGAIN. EXPLAINED RISKS AND BENEFITS. WILL CONTINUE TO MONITOR.
--- NOTE | 2020-01-24 07:07 | NUR ---
MS RN OPENING NOTE RECEIVED PT IN BED, AWAKE AT THIS TIME. A/OX3, PT ABLE TO VERBALIZE NEEDS. NO SOB NOTED NO C/O PAIN AT THIS TIME. NO S/S OF ANY ACUTE DISTRESS NOTED. PT ON NPO STATUS. RESPIRATIONS ARE EVEN AND UNLABORED. LONI MIDLINE, INTACT AND PATENT. PT ON SUPPLEMENTAL OXYGEN 3LPM VIA NC. RIGHT BKA, STUMP INTACT RAPPED WITH CAROL BANDAGE. RIGHT PROSTHETIC LEG NOTED AT BED SIDE. BED IN LOWEST LOCKED, SIDE RAILS UP, BED ALARM ON, HOB ELEVATED TO SEMI FOWLERS POSITION, CALL LIGHTS WITHIN REACH. WILL CONTINUE TO MONITOR
--- NOTE | 2020-01-24 07:33 | NUR ---
MS/RN CLOSING NOTES: PT IN BED, SLEEPING. REMAINS A/OX3. REMAINED STABLE THROUGHOUT SHIFT. ABLE TO VERBALIZE NEEDS. NO SOB NOTED. NO C/O PAIN AT THIS TIME. ALL NEEDS ATTENDED TO PER ORDER. PT KEPT CLEAN AND DRY. RITCHIE CATHETER DRAINING TO GRAVITY CLEAR YELLOW URINE OUTPUT. BED IN LOWEST LOCKED, SIDE RAILS UP, BED ALARM ON, HOB ELEVATED TO SEMI FOWLERS POSITION, CALL LIGHTS WITHIN REACH. CONSENTS FOR EGD PROCEDURE ENDORSED TO DAY SHIFT RN IMMACULATE. ADVISED TO REMIND SON TO VISIT DURING ALLOWED HOURS 5PM-8PM. F/U FOR NG-TUBE INSERTION. WILL ENDORSE TO DAY SHIFT NURSE FOR YARA AND PLAN OF CARE.
[2020-01-24] MEDS: BUDESONIDE RESPULE INH 0.25 MG/2 ML AMPUL.NEB NEB SCH ×2 (07:39→19:30)
[2020-01-24 08:00] VITALS: BP 126/56
[2020-01-24] MEDS: ENSURE ENLIVE 237 ML LIQUID (VANILLA) PO SCH ×3 (08:00→18:00)
[2020-01-24] MEDS: DOCUSATE SODIUM 100 MG CAPSULE PO SCH (09:00)
[2020-01-24] MEDS: SENNOSIDES/DOCUSATE SODIUM 1 TAB TABLET PO SCH (09:00)
[2020-01-24] MEDS: SIMETHICONE 80 MG TAB.CHEW PO SCH ×2 (09:35→17:18)
[2020-01-24] MEDS: FLUCONAZOLE (100 MG) 100 MG TABLET PO SCH (09:36)
[2020-01-24] MEDS: FAMOTIDINE/PF INJ 20 MG/2 ML VIAL IV SCH ×2 (09:36→20:52)
[2020-01-24] MEDS: ASPIRIN 81 MG TAB.CHEW PO SCH (09:36)
[2020-01-24] MEDS: ATORVASTATIN 10 MG TABLET PO SCH (09:38)
[2020-01-24] MEDS: IV NS 0.9% 1,000 ML IV PRN (09:48)
--- NOTE | 2020-01-24 10:00 | NUR ---
PER LAN FURNACE CHECKER, MAINTAIN PATIENT ON NPO STATUS. ORDER RECEIVED AND CARRIED OUT. WILL CONTINUE TO MONITOR
--- NOTE | 2020-01-24 11:42 | NUR ---
PT REFUSED BREATHING TX. NO SOB NOTED
[2020-01-24 16:00] VITALS: BP 126/68
--- NOTE | 2020-01-24 17:07 | NUR ---
PT,S SON (EDD) ON UNIT AND SIGNED CONSENT FOR EGD, POSSIBLE DILATATION OF THE ESOPHAGEAL GASTRIC JUNCTION, BIOPSY OR CAUTERIZATION PER DR ESTRADA ORDER. SIGNED CONSENT FILED IN CHART.
--- NOTE | 2020-01-24 19:05 | NUR ---
MS RN CLOSING NOTE PT IN BED, AWAKE AT THIS TIME. PT REMAINED STABLE THROUGHOUT SHIFT. NO SOB NOTED. NO C/O PAIN AT THIS TIME. ALL NEEDS ATTENDED TO PER ORDER. PT KEPT CLEAN AND DRY. RITCHIE CATHETER DRAINING TO GRAVITY CLEAR YELLOW URINE OUTPUT 250ML. BED IN LOWEST LOCKED, SIDE RAILS UP, BED ALARM ON, HOB ELEVATED TO SEMI FOWLERS POSITION, CALL LIGHTS WITHIN REACH. WILL ENDORSE TO ECONOMIC RESEARCH ASSISTANT NURSE FOR YARA
--- NOTE | 2020-01-24 20:09 | NUR ---
PT REFUSED HHN TX AT THIS TIME. NO SOB NOTED. SELENA HAMMER IS AWARE. PT IS ON 4LNC. Addendum: 01/24/20 at 2009 by MARIANNE ALFONSO RT Amended: Links added.
[2020-01-24 20:52] VITALS: BP 136/63
[2020-01-24 22:16] LABS: BASOPHILS # (AUTO) 0.2 /CMM (0.0-0.2); BASOPHILS % (AUTO) 0.7 % (0.0-2.0); EOSINOPHILS % (AUTO) 0.2 % (0.0-6.0); HEMATOCRIT 34 % (39-51); HEMOGLOBIN 11.1 g/dL (13.5-17.5); LYMPHOCYTES # (AUTO) 0.5 /CMM (0.8-4.8); MEAN CORPUSCULAR HGB CONC 33 g/dl (31.0-36.0); MEAN CORPUSCULAR VOLUME 94 fL (80-96); MONOCYTES # (AUTO) 0.9 /CMM (0.1-1.30); MONOCYTES % (AUTO) 3.8 % (2.0-12.0); NEUTROPHILS # (AUTO) 21.4 /CMM (1.8-8.9); NEUTROPHILS % (AUTO) 93.3 % (43.0-81.0); PLATELET COUNT (AUTO) 146 /CMM (150-450); RED BLOOD CELL COUNT(AUTO) 3.57 MIL/uL (4.5-6.0); WHITE BLOOD COUNT (AUTO) 22.9 K/uL (4.3-11.0)
[2020-01-24 22:32] LABS: ALANINE AMINOTRANSFERASE 29 U/L (12-78); ALBUMIN 1.8 g/dL (3.4-5.0); ALKALINE PHOSPHATASE 81 U/L (46-116); ASPARTATE AMINOTRANSFERASE 41 U/L (15-37); BILIRUBIN,TOTAL 0.7 mg/dL (0.2-1.0); CALCIUM, SERUM 8.3 mg/dL (8.5-10.1); CARBON DIOXIDE 21 mmol/L (21-32); CHLORIDE 110 mmol/L (98-107); CREATININE 2.1 mg/dL (0.6-1.3); GLUCOSE 102 mg/dL (74-106); POTASSIUM 5.3 mmol/L (3.5-5.1); SODIUM SERUM 142 mmol/L (136-145); TOTAL PROTEIN, SERUM 5.7 g/dL (6.4-8.2)
[2020-01-24 22:38] LABS: UREA NITROGEN, BLOOD 89 mg/dL (7-18)
[2020-01-25] MEDS: METOCLOPRAMIDE HCL 10 MG/2 ML VIAL IV SCH ×4 (01:30→18:49)
[2020-01-25] MEDS: IPRATROPIUM NEB FS 0.5 MG/2.5 ML AMPUL.NEB NEB SCH ×6 (02:54→22:42)
[2020-01-25] MEDS: ALBUTEROL FS 2.5 MG/0.5 ML VIAL.NEB NEB SCH ×6 (02:54→22:42)
[2020-01-25 05:19] VITALS: BP 114/55
[2020-01-25] MEDS: BUDESONIDE RESPULE INH 0.25 MG/2 ML AMPUL.NEB NEB SCH ×2 (07:30→19:30)
--- NOTE | 2020-01-25 07:33 | NUR ---
PATIENTLY CURRENTLY NOT IN ROOM. UNABLE TO GIVE TX
--- NOTE | 2020-01-25 07:40 | NUR ---
MS RN OPENING NOTES Patient returned from EGD at this time. Received Patient resting in bed. A/O x 2. VS stable with no acute distress. Breathing even and unlabored on 2LPM via NC with no respiratory distress. Denies pain. No signs and symptoms of pain. Alfaro Cath in place and patent with clear yellow output noted. LONI Midline clean, intact, patent and flushing well with NS infusing at 50ml/hr. Safety precautions in place. Bed locked and set to lowest position with side rails x 2 up. All needs rendered at this time. Call light within reach. Will continue to monitor.
--- NOTE | 2020-01-25 08:00 | NUR ---
MS RN NOTES Per Gail OGDEN, "Resume previous diet". Order noted and carried out. Patient in stable condition. Will continue to monitor.
[2020-01-25] MEDS: FAMOTIDINE/PF INJ 20 MG/2 ML VIAL IV SCH ×2 (08:51→21:02)
[2020-01-25] MEDS: ASPIRIN 81 MG TAB.CHEW PO SCH (08:51)
[2020-01-25] MEDS: SUCRALFATE 1 G TABLET PO SCH ×4 (08:51→21:51)
[2020-01-25] MEDS: ENSURE ENLIVE 237 ML LIQUID (VANILLA) PO SCH ×3 (08:51→17:12)
[2020-01-25 08:52] VITALS: BP 144/75
[2020-01-25] MEDS: SENNOSIDES/DOCUSATE SODIUM 1 TAB TABLET PO SCH (08:52)
[2020-01-25] MEDS: ATORVASTATIN 10 MG TABLET PO SCH (08:52)
[2020-01-25] MEDS: DOCUSATE SODIUM 100 MG CAPSULE PO SCH (08:52)
[2020-01-25] MEDS: SIMETHICONE 80 MG TAB.CHEW PO SCH ×2 (08:52→17:11)
--- NOTE | 2020-01-25 11:18 | NUR ---
PATIENT REFUSED BREATHING TX. [id number]% HR 82 RR18. NO SOB NOTED
--- NOTE | 2020-01-25 15:42 | NUR ---
PT REFUSED BREATHING TX. NO SOB NOTED
[2020-01-25 16:06] VITALS: BP 163/98
[2020-01-25] MEDS: IV NS 0.9% 1,000 ML IV PRN (18:47)
--- NOTE | 2020-01-25 19:17 | NUR ---
MS RN CLOSING NOTES Patient resting in bed. A/O x 2. VS stable with no acute distress. Breathing even and unlabored on 2LPM via NC with no respiratory distress. Denies pain. No signs and symptoms of pain. Alfaro Cath in place and patent with clear yellow output noted. LONI Midline clean, intact, patent and flushing well with NS infusing at 50ml/hr. Safety precautions in place. Bed locked and set to lowest position with side rails x 2 up. All needs rendered at this time. Call light within reach. Will endorse plan of care to oncoming shift.
[2020-01-25 20:22] VITALS: BP 125/74
[2020-01-25 20:33] VITALS: BP 125/74
--- NOTE | 2020-01-25 20:46 | NUR ---
Recieved in bed. Alert and orientated X3 verbalizes his needs. S/P EGD NO ordered to keep the patient NPO status. Abd hard and round. call light withen his reach bed alarm on
[2020-01-26] VITALS (81 sets, daily range): BP systolic 68–173; BP diastolic 39–91
[2020-01-26] MEDS ORDERED: BISACODYL SUPP (10 MG) 10 MG/SUPP.RECT SUPP.RECT RC PRN
[2020-01-26] MEDS ORDERED: MAGNESIUM CITRATE 296 ML BOTTLE PO ONE
[2020-01-26] MEDS ORDERED: BISACODYL (5 MG) 5 MG TABLET.DR PO PRN
[2020-01-26] MEDS: METOCLOPRAMIDE HCL 10 MG/2 ML VIAL IV SCH ×4 (00:17→18:20)
[2020-01-26] MEDS: IPRATROPIUM NEB FS 0.5 MG/2.5 ML AMPUL.NEB NEB SCH ×2 (03:19→07:35)
[2020-01-26] MEDS: ALBUTEROL FS 2.5 MG/0.5 ML VIAL.NEB NEB SCH ×2 (03:19→07:35)
--- NOTE | 2020-01-26 07:28 | NUR ---
During change of shift patient found unresponsive with very slow pulse. Rapid response was called.Patient started vomit coffee ground emesis and no pulse was palpated at that time. Suctioned with 150ml output. Accu check 129. Patient was transferred to ICU, report given Connor WALTERS. See rapid response form in the pt's chart.
[2020-01-26] MEDS: BUDESONIDE RESPULE INH 0.25 MG/2 ML AMPUL.NEB NEB SCH ×2 (07:30→19:44)
[2020-01-26] MEDS: SUCRALFATE 1 G TABLET PO SCH ×4 (07:30→21:01)
[2020-01-26 07:37] LABS: BASOPHILS % (AUTO) 0.2 % (0.0-2.0); HEMATOCRIT 37 % (39-51); HEMOGLOBIN 11.8 g/dL (13.5-17.5); LYMPHOCYTES # (AUTO) 0.3 /CMM (0.8-4.8); LYMPHOCYTES % (AUTO) 1.6 % (20.0-44.0); MEAN CORPUSCULAR HGB CONC 32 g/dl (31.0-36.0); MEAN CORPUSCULAR VOLUME 97 fL (80-96); MONOCYTES # (AUTO) 0.3 /CMM (0.1-1.30); NEUTROPHILS # (AUTO) 15.3 /CMM (1.8-8.9); NEUTROPHILS % (AUTO) 96.2 % (43.0-81.0); PLATELET COUNT (AUTO) 174 /CMM (150-450); RED BLOOD CELL COUNT(AUTO) 3.78 MIL/uL (4.5-6.0); WHITE BLOOD COUNT (AUTO) 15.9 K/uL (4.3-11.0)
--- NOTE | 2020-01-26 07:40 | NUR ---
MSRN SPOKE TO SON EDD, INFORMED ABOUT PATIENT CONDITION. INFORMED PATIENT WILL GO TO ICU. EXTENSION PROVIDED STATED WILL CALL ICU FOR MORE INFO. AWARE PATIENT WAS INTUBATED. CN AWARE.
--- NOTE | 2020-01-26 07:40 | NUR ---
PT INTUBATED BY NETO OGDEN FOR AIRWAY PROTECTION WITH 7.5 ET TUBE SECURED @ 23 CM CENTER OF THE LIPS. CO2 DETECTOR CHANGED TO YELLOW COLOR POST INTUBATION. BREATH SOUNDS CLEAR BILATERAL WITH SYM ETRICAL CHEST RISE ON POST INTUBATION. VENT PARAMETERS BELOW ORDER: AC 22 VT 550 ML FIO2 100% PEEP +5 VENT PLUGGED INTO RED OUTLET WITH ALARMS ON AND FUNCTIONING. AMBUBAG @ BEDSIDE. Addendum: 01/26/20 at 0902 by PHIL HAMPTON RT Amended: Links added.
[2020-01-26] MEDS ORDERED: FEE EMEERGENCY 1 MIN EA MC ONE (07:56)
[2020-01-26] MEDS ORDERED: CALCIUM CHLORIDE 1,000 MG/10 ML DISP.SYRIN IV ONE (07:56)
[2020-01-26] MEDS ORDERED: EPINEPHRINE (1:10,000) SYRINGE 1 MG/10 ML DISP.SYRIN IVP ONE (07:56)
[2020-01-26] MEDS ORDERED: SODIUM BICARBONATE SYR 50 MEQ/50 ML DISP.SYRIN IV ONE ×2 (07:56→09:30)
[2020-01-26] MEDS: ENSURE ENLIVE 237 ML LIQUID (VANILLA) PO SCH (08:00)
--- NOTE | 2020-01-26 08:10 | NUR ---
CARROT TIER: got pt from [facility] after RR/code blue/pulseless activity, intubated 7.5/23, AC 22/550/100%/p5, O2sat. over 94%, no arms/legs activity, very sluggish pupils reaction 2mm, cough reflex+, no reaction for pain stimuli now, suctioned via ETT with dark brown secretion/aspirated?, OGT connected to LCS: dark brown drain, SR now, SBP over 100 now, getting 500ml NS bolus, T 94.5/warming measures initiated
--- NOTE | 2020-01-26 08:20 | NUR ---
ASSAYER HELPER: pulseless palpation and on monitor, at BS/code blue+, CPR started, Epi 1mg iV given CPR
[2020-01-26 08:23] LABS: ALANINE AMINOTRANSFERASE 32 U/L (12-78); ALBUMIN 1.7 g/dL (3.4-5.0); ALKALINE PHOSPHATASE 79 U/L (46-116); ASPARTATE AMINOTRANSFERASE 44 U/L (15-37); BILIRUBIN,TOTAL 0.9 mg/dL (0.2-1.0); CALCIUM, SERUM 8.7 mg/dL (8.5-10.1); CARBON DIOXIDE 15 mmol/L (21-32); CHLORIDE 109 mmol/L (98-107); CREATININE 2.7 mg/dL (0.6-1.3); GLUCOSE 129 mg/dL (74-106); POTASSIUM 5.6 mmol/L (3.5-5.1); SODIUM SERUM 141 mmol/L (136-145); TOTAL PROTEIN, SERUM 5.8 g/dL (6.4-8.2)
--- NOTE | 2020-01-26 08:23 | NUR ---
CABLE ARMORER: pulse activity+/on monitor+, SR now
[2020-01-26 08:28] LABS: UREA NITROGEN, BLOOD 96 mg/dL (7-18)
--- NOTE | 2020-01-26 08:35 | NUR ---
BANKING OFFICER: SBP 76-86, SR, ordered Epinephrine drip
[2020-01-26 08:40] LABS: MAGNESIUM 3.2 mg/dL (1.8-2.4); PHOSPHORUS 7.7 mg/dL (2.5-4.9)
--- NOTE | 2020-01-26 08:40 | NUR ---
SPARE PERSON: OGT to LIS: got 150 ml coffee ground drain, abdomen is distended, slightly tender
[2020-01-26] MEDS ORDERED: EPINEPHRINE (1:1000) 5 MG in IV NS 0.9% 245 ML IV PRN (09:00)
[2020-01-26] MEDS: ATORVASTATIN 10 MG TABLET PO SCH (09:00)
[2020-01-26] MEDS: DOCUSATE SODIUM 100 MG CAPSULE PO SCH (09:00)
[2020-01-26] MEDS: SENNOSIDES/DOCUSATE SODIUM 1 TAB TABLET PO SCH (09:00)
[2020-01-26] MEDS: SIMETHICONE 80 MG TAB.CHEW PO SCH ×2 (09:00→16:59)
[2020-01-26] MEDS: FAMOTIDINE/PF INJ 20 MG/2 ML VIAL IV SCH ×2 (09:00→20:12)
--- NOTE | 2020-01-26 09:00 | NUR ---
MANAGER OF TIRES SALES: saw pt./ordered Bicarb 100mg/2amp IV, 500ml NS bolus, see new orders
--- NOTE | 2020-01-26 09:12 | NUR ---
VENT CHANGES BELOW PER DR. FAULKNER: AC 28 VT 600 FIO2 60% Addendum: 01/26/20 at 0913 by PHIL HAMPTON RT Amended: Links added.
[2020-01-26] MEDS ORDERED: IV NS 0.9% 500 ML IV ONE (09:30)
--- NOTE | 2020-01-26 09:30 | NUR ---
DRILLING ENGINEER: changed vent setting: now AC R28/Tv 600/60% peep5, ABG at 11.15, RT notified
[2020-01-26 09:32] LABS: ABG BASE EXCESS -17.4 mmol/L; ABG OXYGEN SATURATION 99.5 % (92.0-98.5); ABG PCO2 42.1 mmHg (35.0-45.0); ABG PH 7.073 (7.350-7.450); ABG PO2 374.8 mmHg (75.0-100.0); AaDO2 296.1 mmHg; COHb 0.2 % (0.5-1.5); MetHb 0.5 % (0.0-1.5); O2Hb 98.8 % (94.0-97.0); PEEP,BG 5 cm H2O; SITE, ABG Right Radial; VT, ABG 550 mL
--- NOTE | 2020-01-26 10:00 | NUR ---
REGISTERED RADIOGRAPHER: Epi gtt 0.2 mcg/kg/m now, SBP 90-100, SR/ST, up to 160, changed EKG lids, neuro: cough reflex+, weak grimacing reaction by pain stimuli, trace arms/L.leg activity, O2sat. over 96%, no SOB, pt is rest, no overventilated, RR 27-29, suctioned via ETT with lavage, continue OGT to LIS
[2020-01-26] MEDS: IV D5/ 0.9% NACL 1,000 ML IV PRN ×2 (10:02→19:31)
--- NOTE | 2020-01-26 10:32 | NUR ---
AVIATION TECHNICAL SYSTEMS SPECIALIST: Covid swab test is taken
[2020-01-26 11:38] LABS: ABG BASE EXCESS -11.6 mmol/L; ABG OXYGEN SATURATION 96.3 % (92.0-98.5); ABG PCO2 33.1 mmHg (35.0-45.0); ABG PH 7.257 (7.350-7.450); ABG PO2 97.9 mmHg (75.0-100.0); AaDO2 293.5 mmHg; COHb 0.3 % (0.5-1.5); MetHb 0.8 % (0.0-1.5); O2Hb 95.2 % (94.0-97.0); PEEP,BG 5 cm H2O; SITE, ABG Right Brachial; VT, ABG 600 mL
--- NOTE | 2020-01-26 11:43 | NUR ---
DENTAL DIRECTOR: ABG now pH7., notified by RT/no new order
--- NOTE | 2020-01-26 12:15 | NUR ---
SPORTSPERSONS: is in room/updated with all above, spoke with , see new orders
[2020-01-26] MEDS: EPINEPHRINE (1:1000) 10 MG in IV NS 0.9% 240 ML IV PRN ×2 (13:27→19:30)
--- NOTE | 2020-01-26 13:30 | NUR ---
SANDWICH AND DRINK CART OPERATOR: pt can open eyes, little grimacing, weak arms activity+, O2sat. over 97%, RR 27-29, started Diprivan gtt
[2020-01-26] MEDS: PROPOFOL 100 ML IV PRN (13:38)
[2020-01-26] MEDS: PANTOPRAZOLE 40 MG VIAL IV SCH ×2 (13:52→20:12)
[2020-01-26] MEDS ORDERED: FEE PK DOSING 1 MIN EA MC ONE (14:11)
--- NOTE | 2020-01-26 14:30 | NUR ---
SPOKE TO SON EDD ARSEN: PATIENT CURRENT CONDITION AND OBTAINED CONSENT FOR PICC LINE INSERTION.
[2020-01-26] MEDS: VANCOMYCIN 1 GM in IV D5W 250ml IV SCH (14:40)
[2020-01-26] MEDS: PIPERACILLIN /TAZOBACTAM 2.25 G in IV D5W 50 ML IV SCH ×2 (14:40→20:32)
--- NOTE | 2020-01-26 15:45 | NUR ---
PUTTY AND CAULKING SUPERVISOR: PM/skin/bedbath care done, turned pt q2h, [facility] bed is not working/called to engineering to get cord
--- NOTE | 2020-01-26 17:47 | NUR ---
FINANCIAL AID MANAGER: pt is sedated with 5 mcg/kg/m Diprivan, rest, reactive by touch/pain stimuli, can open eyes for seconds, trace arms activity, O2sat.over 94%, RR 27-29, SR, on Epi gtt 0.3 mcg/kg/m, SBP over 90, called to pharmacy to get Epi bags for night time, low urine out/will s/w night nurse/recheck possible F/C leak again, T 98.1 now, all PM/skin/bedbath care done, OGT to LIS: 300ml coffee ground drain, next H/H after 18.00, pt is isolated now/second Coved test pending, pt.daughter called, updated with pt.current condition, VS, meds, orders, POC
--- NOTE | 2020-01-26 19:10 | NUR ---
DIRECTOR OF PAYROLL OPENING NOTES RECEIVED PT ON BED WITH AN EYE OPENING RESPONSIVE TO PAIN JUST STARING IF CALLED, ON ETT/VENT SETTING ORDERED SPO2 98% NO SIGN AND SYMPTOMS OF ACUTE RESPIRATORY DISTRESS, ON OGT CONNECTED TO INTERMITTENT SUCTION @ 70mm/Hg WITH COFFEE GROUND OUTPUT, CONNECTED TO TELE MONITOR WITH CURRENT READING OF SINUS RHYTHM 80'S, WITH LIBAN MIDLINE WITH ONGOING NOREPI @ 0.3MCG/KG/MIN, PROPOFOL 5MCG/KG/MIN AND D5NS @ 125 NL/HR INFUSING WELL ON DROPLET ISOLATION PRECAUTION TO R/O COVID 19 PENDING RESULTS, SAFETY MEASURE MAINTAINED BED ON LOWEST POSITION AND LOCKED SIDE RAILS UP X3 WILL CONT TO MONITOR THE PT.
[2020-01-26 21:27] LABS: HEMOGLOBIN 11.1 g/dL (13.5-17.5)
[2020-01-27] VITALS (89 sets, daily range): BP systolic 75–169; BP diastolic 29–98
[2020-01-27] MEDS: METOCLOPRAMIDE HCL 10 MG/2 ML VIAL IV SCH ×4 (00:12→18:17)
[2020-01-27] MEDS: EPINEPHRINE (1:1000) 10 MG in IV NS 0.9% 240 ML IV PRN ×5 (01:30→20:59)
[2020-01-27] MEDS: PROPOFOL 100 ML IV PRN ×3 (03:17→21:38)
[2020-01-27] MEDS: IV D5/ 0.9% NACL 1,000 ML IV PRN ×3 (03:31→21:36)
[2020-01-27] MEDS: PIPERACILLIN /TAZOBACTAM 2.25 G in IV D5W 50 ML IV SCH ×3 (05:32→21:35)
--- NOTE | 2020-01-27 05:58 | NUR ---
RT NOTES PT REMAINS ORALLY INTUBATED WITH 7.5ETT PROPERLY SECURED AT 23 CM LIP FELTON. NO SOB/ DISTRESS/ ADVERSE EFFECTS NOTED ALL SHIFT. VENT WELL FUNCTIONING WITH ALARMS ON AND WELL AUDIBLE.
[2020-01-27 06:21] LABS: HEMOGLOBIN 11.8 g/dL (13.5-17.5)
[2020-01-27 06:25] LABS: EOSINOPHILS % (AUTO) 0.1 % (0.0-6.0); HEMATOCRIT 35 % (39-51); HEMOGLOBIN 11.9 g/dL (13.5-17.5); LYMPHOCYTES # (AUTO) 0.4 /CMM (0.8-4.8); LYMPHOCYTES % (AUTO) 2.9 % (20.0-44.0); MEAN CORPUSCULAR HGB CONC 34 g/dl (31.0-36.0); MEAN CORPUSCULAR VOLUME 94 fL (80-96); MONOCYTES # (AUTO) 0.4 /CMM (0.1-1.30); MONOCYTES % (AUTO) 3.1 % (2.0-12.0); NEUTROPHILS # (AUTO) 11.9 /CMM (1.8-8.9); NEUTROPHILS % (AUTO) 93.9 % (43.0-81.0); PLATELET COUNT (AUTO) 131 /CMM (150-450); RED BLOOD CELL COUNT(AUTO) 3.76 MIL/uL (4.5-6.0); WHITE BLOOD COUNT (AUTO) 12.6 K/uL (4.3-11.0)
[2020-01-27 06:32] LABS: ALANINE AMINOTRANSFERASE 127 U/L (12-78); ALKALINE PHOSPHATASE 89 U/L (46-116); ASPARTATE AMINOTRANSFERASE 246 U/L (15-37); CALCIUM, SERUM 8.2 mg/dL (8.5-10.1); CARBON DIOXIDE 20 mmol/L (21-32); CHLORIDE 111 mmol/L (98-107); CREATININE 3.2 mg/dL (0.6-1.3); GLUCOSE 201 mg/dL (74-106); PHOSPHORUS 4.8 mg/dL (2.5-4.9); POTASSIUM 4.7 mmol/L (3.5-5.1); SODIUM SERUM 144 mmol/L (136-145)
[2020-01-27 06:51] LABS: D-DIMER 24.29 mg/L(FEU (0.17-0.50)
--- NOTE | 2020-01-27 06:52 | NUR ---
RN CLOSING NOTES PT ON BED CALM AND NON COMBATIVE, STILL WITH ON ETT/VENT SETTING ORDERED NO SIGN AND SYMPTOMS OF RESPIRATORY DISTRESS SPO2 99%, STILL ON OGT INTERMITTENT SUCTION WITH COFFEE GROUND OUTPUT, ON BILATERAL WRIST RESTRAINTS, ON DROPLET ISOLATION R/O COVID PENDING RESULTS, TELE MONITOR READING SINUS RHYTHM 90'S, ALL NEEDS ATTENDED SAFETY MEASURE MAINTAIN BED ON LOWEST POSITION AND LOCKED SIDE RAILS UP X3 WILL ENDORSED TO AM SHIFT NURSE
[2020-01-27 07:03] LABS: ALBUMIN 1.4 g/dL (3.4-5.0); UREA NITROGEN, BLOOD 95 mg/dL (7-18)
[2020-01-27] MEDS: SUCRALFATE 1 G TABLET PO SCH ×4 (07:34→21:35)
[2020-01-27] MEDS: BUDESONIDE RESPULE INH 0.25 MG/2 ML AMPUL.NEB NEB SCH ×2 (07:39→19:32)
[2020-01-27 08:39] LABS: ABG BASE EXCESS -9.4 mmol/L; ABG OXYGEN SATURATION 96.4 % (92.0-98.5); ABG PCO2 33.7 mmHg (35.0-45.0); ABG PH 7.297 (7.350-7.450); ABG PO2 95.4 mmHg (75.0-100.0); AaDO2 295.3 mmHg; COHb 0.4 % (0.5-1.5); MetHb 0.1 % (0.0-1.5); O2Hb 95.9 % (94.0-97.0); PEEP,BG 5 cm H2O; SITE, ABG Right Brachial; VT, ABG 600 mL
[2020-01-27] MEDS: HYDROCORTISONE SOD SUCCINATE 100 MG/2 ML VIAL IV SCH ×3 (08:50→16:42)
[2020-01-27] MEDS: SENNOSIDES/DOCUSATE SODIUM 1 TAB TABLET PO SCH (08:50)
[2020-01-27] MEDS: PANTOPRAZOLE 40 MG VIAL IV SCH ×2 (08:50→21:35)
[2020-01-27] MEDS: FAMOTIDINE/PF INJ 20 MG/2 ML VIAL IV SCH ×2 (08:50→21:35)
[2020-01-27] MEDS: SIMETHICONE 80 MG TAB.CHEW PO SCH ×2 (08:51→16:42)
[2020-01-27] MEDS: DOCUSATE SODIUM 100 MG CAPSULE PO SCH (08:51)
[2020-01-27 10:15] LABS: IRON, SERUM 60 ug/dl (50-175); TOTAL IRON BINDING CAPACITY 120 ug/dl (250-450)
--- NOTE | 2020-01-27 11:01 | NUR ---
RN NOTE 0745: Received patient sedated. With ETT to vent, tolerated settings at this time. With LIBAN PICC and LONI midline. On Epi 0.5, Dip 10, D5NS 125. Alfaro cath intact, noted with minimal UOP. 0830: Spoke with son and given update, all concerns and questions were answered. 0900: Lab called and reported repeat Covid swab was neg, Dr. Jones aware. ABG resulted, Dr. Jones in the unit aware, no changes per MD. 0915: Tried to lower Diprivan to 5mcg but noted with restlessness and moving arms, continue SCRAP METAL COLLECTOR restraints and will increase Diprivan for sedation. AM meds given via OGT< paused LIS for now. Given BM regimen for noted contrast in colon from CT. 1100: No any significant changes noted at this time. Kept clean, warm and dry.
[2020-01-27 13:27] LABS: HEMOGLOBIN 11.1 g/dL (13.5-17.5)
[2020-01-27] MEDS ORDERED: PHYTONADIONE INJ 10 MG/1 ML AMPUL SQ ONE (17:00)
[2020-01-27] MEDS ORDERED: MINERAL OIL 133 ML (PYXIS) 1 EA ENEMA RC ONE (17:30)
--- NOTE | 2020-01-27 17:58 | NUR ---
RN NOTE S/E by Shanell JORGENSEN, no residuals from LIS. Made aware no BM after GT bowel meds, with order to give Mineral oil enema.
[2020-01-27 19:24] LABS: HEMOGLOBIN 11.7 g/dL (13.5-17.5)
--- NOTE | 2020-01-27 21:15 | NUR ---
TUG HAND. INITIAL ASSESSMENT. RECEIVED THE PT REST ON THE BED. ORALLY INTUBATED. SEDATED WITH DIPRIVAN. ETT 7.5,LIP 28,AC 28,TV 600,FIO2 60%,PEEP 5. SAT 98%. NO SCUTE DISTRESS NOTED. FINISHING MACHINE TENDER SHOWING S TACH.IV RT UPPER ARM PICC LINE LT UPPER ARM MID LINE LT UPPER ARM MID LINE. DIPRIVAN 10MCG/KG/MIN,IVF D5NS 125ML/H,EPI DRIP 0.5MCG/KG/MIN.FC PATENT. OGT LOW INTERMITTENT SUCTION. VIELKA SOFT WRIST RESTRAINT CHECKED AND RELEASED. NO INJURY OR REDNESS NOTED.WILL CONTINUE TO MONITOR VITALS
[2020-01-28] VITALS (81 sets, daily range): BP systolic 61–155; BP diastolic 39–94
[2020-01-28 02:25] LABS: BASOPHILS # (AUTO) 0.1 /CMM (0.0-0.2); EOSINOPHILS % (AUTO) 0.1 % (0.0-6.0); HEMATOCRIT 34 % (39-51); HEMOGLOBIN 11.4 g/dL (13.5-17.5); LYMPHOCYTES # (AUTO) 0.3 /CMM (0.8-4.8); LYMPHOCYTES % (AUTO) 3.7 % (20.0-44.0); MEAN CORPUSCULAR HGB CONC 34 g/dl (31.0-36.0); MEAN CORPUSCULAR VOLUME 94 fL (80-96); MONOCYTES # (AUTO) 0.1 /CMM (0.1-1.30); MONOCYTES % (AUTO) 1.4 % (2.0-12.0); NEUTROPHILS # (AUTO) 6.3 /CMM (1.8-8.9); NEUTROPHILS % (AUTO) 93.8 % (43.0-81.0); PLATELET COUNT (AUTO) 92 /CMM (150-450); RED BLOOD CELL COUNT(AUTO) 3.63 MIL/uL (4.5-6.0); WHITE BLOOD COUNT (AUTO) 6.7 K/uL (4.3-11.0)
[2020-01-28 02:30] LABS: ALANINE AMINOTRANSFERASE 118 U/L (12-78); ALKALINE PHOSPHATASE 113 U/L (46-116); ASPARTATE AMINOTRANSFERASE 159 U/L (15-37); CARBON DIOXIDE 19 mmol/L (21-32); CHLORIDE 110 mmol/L (98-107); CREATININE 3.6 mg/dL (0.6-1.3); GLUCOSE 204 mg/dL (74-106); MAGNESIUM 2.6 mg/dL (1.8-2.4); PHOSPHORUS 5.4 mg/dL (2.5-4.9); POTASSIUM 4.7 mmol/L (3.5-5.1); SODIUM SERUM 142 mmol/L (136-145)
[2020-01-28 02:31] LABS: UREA NITROGEN, BLOOD 97 mg/dL (7-18)
[2020-01-28 02:34] LABS: ALBUMIN 1.2 g/dL (3.4-5.0)
[2020-01-28 02:47] LABS: BAND % (MANUAL) 19 % (0.0-5.0); LYMPHOCYTES % (MANUAL) 3 % (16-48); MONOCYTES % (MANUAL) 1 % (0-11.0); NEUTROPHILS % (MANUAL) 77 (42-76)
[2020-01-28 02:58] LABS: D-DIMER 15.08 mg/L(FEU (0.17-0.50)
[2020-01-28] MEDS: METOCLOPRAMIDE HCL 10 MG/2 ML VIAL IV SCH ×4 (03:01→17:50)
[2020-01-28] MEDS: VANCOMYCIN 1 GM in IV D5W 250ml IV SCH (03:02)
[2020-01-28] MEDS: EPINEPHRINE (1:1000) 10 MG in IV NS 0.9% 240 ML IV PRN ×4 (03:26→22:38)
--- NOTE | 2020-01-28 03:31 | NUR ---
PHARMACY CLINICAL SPECIALIST. AM CARE, ORAL CARE, BED BATH GIVEN. LINEN CHANGED. REMAINING SAME VENT SETTING TOLERATED WELL. SAT 99%,.NO ACUTE DISTRESS NOTED. BUMP GRADER OPERATOR SHOWING S TACH. IC RT UPPER ARM PICC LINE LT UPPER ARM MID LINE IVF D5ND 125 ML/H, OGT INTACT. LOW INTERMITTENT SUCTION, FC PATENT. VIELKA SOFT WRIST RESTRAINT CHECKED AND RELEASED. NO INJURY OR REDNESS NOTED,HOB ELEVATED, TURN AND REPOSITION Q2H. WILL CONTINUE TO MONITOR VITALS.
[2020-01-28] MEDS: PIPERACILLIN /TAZOBACTAM 2.25 G in IV D5W 50 ML IV SCH ×3 (04:53→21:18)
[2020-01-28] MEDS: IV D5/ 0.9% NACL 1,000 ML IV PRN ×3 (05:37→22:29)
[2020-01-28] MEDS ORDERED: EPINEPHRINE (1:1000) 1 MG/ML AMPUL ONE (06:24)
--- NOTE | 2020-01-28 07:03 | NUR ---
QUARRY PLANT CRUSHER OPERATOR REGSALONI LAST GIVEN AT [id number]
[2020-01-28] MEDS: BUDESONIDE RESPULE INH 0.25 MG/2 ML AMPUL.NEB NEB SCH ×2 (07:52→19:37)
[2020-01-28] MEDS: PANTOPRAZOLE 40 MG VIAL IV SCH ×2 (08:02→21:18)
[2020-01-28] MEDS: SENNOSIDES/DOCUSATE SODIUM 1 TAB TABLET PO SCH (08:02)
[2020-01-28] MEDS: FAMOTIDINE/PF INJ 20 MG/2 ML VIAL IV SCH ×2 (08:02→21:18)
[2020-01-28] MEDS: SIMETHICONE 80 MG TAB.CHEW PO SCH ×2 (08:02→17:50)
[2020-01-28] MEDS: SUCRALFATE 1 G TABLET PO SCH ×4 (08:02→21:18)
[2020-01-28] MEDS: DOCUSATE SODIUM LIQ 100 MG/10 ML UDC NG SCH (08:04)
[2020-01-28 08:49] LABS: ABG BASE EXCESS -8.7 mmol/L; ABG OXYGEN SATURATION 97.7 % (92.0-98.5); ABG PCO2 29.6 mmHg (35.0-45.0); ABG PH 7.344 (7.350-7.450); ABG PO2 107.9 mmHg (75.0-100.0); AaDO2 287.3 mmHg; COHb 0.5 % (0.5-1.5); MetHb 0.1 % (0.0-1.5); O2Hb 97.1 % (94.0-97.0); SITE, ABG Right Brachial
[2020-01-28] MEDS: HYDROCORTISONE SOD SUCCINATE 100 MG/2 ML VIAL IV SCH ×3 (08:58→17:50)
[2020-01-28] MEDS ORDERED: BUMETANIDE INJ 4 MG in IV D5W 24 ML IV ONE (09:00)
[2020-01-28] MEDS: PROPOFOL 100 ML IV PRN (13:02)
[2020-01-28 14:20] LABS: HEMOGLOBIN 11.1 g/dL (13.5-17.5)
--- NOTE | 2020-01-28 17:59 | NUR ---
RT NOTE: PATIENT RECEIVED ORALLY INTUBATED WITH 7.5 ETT SECURED AT 23 CM MID LIP LINE ON MECHANICAL VENT. ALARMS VERIFIED AND AUDIBLE. VENT PLUGGED INTO RED OUTLET. AMBU BAG AT [facility].
[2020-01-28 18:40] LABS: HEMOGLOBIN 11.1 g/dL (13.5-17.5)
[2020-01-28 22:22] LABS: APPEARANCE,URINE CLOUDY (CLEAR); BILIRUBIN,URINE NEGATIVE (NEGATIVE); BLOOD, URINE LARGE Ery/uL (NEGATIVE); COLOR,URINE YELLOW (YELLOW); KETONES,URINE NEGATIVE (NEGATIVE); LEUKOCYTE ESTERASE ,URINE TRACE (NEGATIVE); NITRITE, URINE NEGATIVE (NEGATIVE); PH,URINE 5.5 (5.0-8.0); PROTEIN,URINE 30 mg/dl (NEGATIVE); UGLUCOSE NEGATIVE (NEGATIVE); UROBILINOGEN,URINE 0.2 EU/dL (0.2)
[2020-01-28 22:38] LABS: BACTERIA,URINE Few /HPF (None Seen); SQUAMOUS EPITHELIAL CELL,UR Rare /HPF (None Seen)
[2020-01-28 22:48] LABS: CREATININE, URINE 74.3 MG/DL (30.0-125.0); URINE TOTAL PROTEIN 127.5 mg/dL (0-11.9)
[2020-01-28 22:58] LABS: EOSINOPHIL,URINE None Seen
[2020-01-29] VITALS (89 sets, daily range): BP systolic 68–176; BP diastolic 49–102
[2020-01-29] MEDS: METOCLOPRAMIDE HCL 10 MG/2 ML VIAL IV SCH ×4 (00:54→17:12)
[2020-01-29] MEDS: PROPOFOL 100 ML IV PRN ×2 (00:56→08:21)
[2020-01-29] MEDS ORDERED: VANCOMYCIN 1 GM VIAL ONE (00:59)
[2020-01-29] MEDS ORDERED: VANCOMYCIN 1 GM in IV D5W 250ml IV SCH (03:00)
[2020-01-29] MEDS: PIPERACILLIN /TAZOBACTAM 2.25 G in IV D5W 50 ML IV SCH ×2 (04:36→12:06)
[2020-01-29 04:55] LABS: BASOPHILS % (AUTO) 0.1 % (0.0-2.0); HEMATOCRIT 34 % (39-51); HEMOGLOBIN 11.3 g/dL (13.5-17.5); LYMPHOCYTES # (AUTO) 0.3 /CMM (0.8-4.8); LYMPHOCYTES % (AUTO) 4.1 % (20.0-44.0); MEAN CORPUSCULAR HGB CONC 34 g/dl (31.0-36.0); MEAN CORPUSCULAR VOLUME 95 fL (80-96); MONOCYTES # (AUTO) 0.4 /CMM (0.1-1.30); NEUTROPHILS # (AUTO) 6.9 /CMM (1.8-8.9); NEUTROPHILS % (AUTO) 90.8 % (43.0-81.0); PLATELET COUNT (AUTO) 82 /CMM (150-450); RED BLOOD CELL COUNT(AUTO) 3.54 MIL/uL (4.5-6.0); WHITE BLOOD COUNT (AUTO) 7.6 K/uL (4.3-11.0)
[2020-01-29 05:13] LABS: ALANINE AMINOTRANSFERASE 127 U/L (12-78); ALKALINE PHOSPHATASE 172 U/L (46-116); ASPARTATE AMINOTRANSFERASE 151 U/L (15-37); BILIRUBIN,TOTAL 0.9 mg/dL (0.2-1.0); CALCIUM, SERUM 8.3 mg/dL (8.5-10.1); CARBON DIOXIDE 17 mmol/L (21-32); CHLORIDE 111 mmol/L (98-107); CREATININE 3.8 mg/dL (0.6-1.3); GLUCOSE 176 mg/dL (74-106); MAGNESIUM 2.6 mg/dL (1.8-2.4); PHOSPHORUS 5.7 mg/dL (2.5-4.9); POTASSIUM 4.7 mmol/L (3.5-5.1); SODIUM SERUM 142 mmol/L (136-145); TOTAL PROTEIN, SERUM 4.9 g/dL (6.4-8.2)
[2020-01-29 05:27] LABS: UREA NITROGEN, BLOOD 99 mg/dL (7-18)
[2020-01-29 05:28] LABS: ALBUMIN 1.1 g/dL (3.4-5.0)
[2020-01-29 05:34] LABS: NEUTROPHILS % (MANUAL) 2 (42-76)
[2020-01-29 05:35] LABS: LYMPHOCYTES % (MANUAL) 2 % (16-48)
[2020-01-29] MEDS: EPINEPHRINE (1:1000) 10 MG in IV NS 0.9% 240 ML IV PRN ×3 (06:06→16:45)
--- NOTE | 2020-01-29 08:00 | NUR ---
ICU/RN PT IS INTUBATE ON THE VENT AC MODE,FIO2-50%,SAT O2-99%.ON ADRENALINE DRIP.AND DIPRIVAN DRIP ,SEDATED.RIGHT UPPER ARM PICC LINE .OG TUBE DRAINING WITH GREEN SECRETION.F/C IN PLACE NO URINE OUTPUT.GENERALIZED EDEMA PRESENT.MULTIPLY BRUISES AND SKIN TEARS NOTED ALL OVER THE BODY.REDNESS ON CHRIS AREA AND LOVER BACK NOTED.
[2020-01-29] MEDS: SENNOSIDES/DOCUSATE SODIUM 1 TAB TABLET PO SCH (08:19)
[2020-01-29] MEDS: FAMOTIDINE/PF INJ 20 MG/2 ML VIAL IV SCH (08:19)
[2020-01-29] MEDS: PANTOPRAZOLE 40 MG VIAL IV SCH (08:19)
[2020-01-29] MEDS: HYDROCORTISONE SOD SUCCINATE 100 MG/2 ML VIAL IV SCH ×3 (08:19→17:12)
[2020-01-29] MEDS: SUCRALFATE 1 G TABLET PO SCH ×3 (08:19→17:12)
[2020-01-29] MEDS: SIMETHICONE 80 MG TAB.CHEW PO SCH ×2 (08:19→17:12)
[2020-01-29] MEDS: DOCUSATE SODIUM LIQ 100 MG/10 ML UDC NG SCH (08:19)
[2020-01-29] MEDS ORDERED: IOHEXOL 240MG/ML 0 ML IV ONE (08:29)
[2020-01-29] MEDS ORDERED: IOHEXOL 50 ML IV ONE (08:30)
[2020-01-29] MEDS: BUDESONIDE RESPULE INH 0.25 MG/2 ML AMPUL.NEB NEB SCH ×2 (08:31→19:36)
[2020-01-29 09:19] LABS: ABG BASE EXCESS -11.3 mmol/L; ABG OXYGEN SATURATION 97.8 % (92.0-98.5); ABG PCO2 25.1 mmHg (35.0-45.0); ABG PH 7.329 (7.350-7.450); ABG PO2 113.9 mmHg (75.0-100.0); AaDO2 214.4 mmHg; COHb 0.4 % (0.5-1.5); MetHb 0.2 % (0.0-1.5); O2Hb 97.2 % (94.0-97.0); SITE, ABG Left Radial; VENT MODE, BG AC 28 600 50% +5
--- NOTE | 2020-01-29 15:00 | NUR ---
ICU/RN CT ABDOMEN DONE ORDERED.
[2020-01-29 16:42] LABS: BASOPHILS % (AUTO) 0.1 % (0.0-2.0); EOSINOPHILS % (AUTO) 0.1 % (0.0-6.0); HEMATOCRIT 36 % (39-51); HEMOGLOBIN 12.1 g/dL (13.5-17.5); LYMPHOCYTES # (AUTO) 0.3 /CMM (0.8-4.8); LYMPHOCYTES % (AUTO) 3.9 % (20.0-44.0); MEAN CORPUSCULAR HGB CONC 34 g/dl (31.0-36.0); MEAN CORPUSCULAR VOLUME 95 fL (80-96); MONOCYTES # (AUTO) 0.6 /CMM (0.1-1.30); MONOCYTES % (AUTO) 6.6 % (2.0-12.0); NEUTROPHILS # (AUTO) 7.8 /CMM (1.8-8.9); NEUTROPHILS % (AUTO) 89.3 % (43.0-81.0); PLATELET COUNT (AUTO) 71 /CMM (150-450); RED BLOOD CELL COUNT(AUTO) 3.81 MIL/uL (4.5-6.0); WHITE BLOOD COUNT (AUTO) 8.7 K/uL (4.3-11.0)
[2020-01-29 16:53] LABS: LYMPHOCYTES % (MANUAL) 5 % (16-48); MONOCYTES % (MANUAL) 6 % (0-11.0); NEUTROPHILS % (MANUAL) 89 (42-76)
--- NOTE | 2020-01-29 18:30 | NUR ---
ICU/BIT SHARPENER AT BED SIDE .DECIDED TO PLACE PATIENT ON COMFORT CARE.DR SMALLWOOD AT BED SIDE TALKING TO THE FAMILY.
--- NOTE | 2020-01-29 18:42 | NUR ---
CORPORATE ADMINISTRATIVE ASSISTANT SPOKE WITH ELYSIA HAND REGARDING FAMILY'S DECISION TO PLACE PT ON COMFORT CARE AFTER THEY HAD A DISCUSSION WITH DR SMALLWOOD. PT'S CODE STATUS CHANGED TO COMFORT CARE.
--- NOTE | 2020-01-29 20:30 | NUR ---
SYNTHETIC FILAMENT SPINNER. INITIAL ASSESSMENT. [id number] THE PT REST ON THE BED. ORALLY INTUBATED. PT IS COMATOSE. NO GAG REFLEX, NO BOWEL SOUND PRESENT. FAMILY DESIDEED TO COMFORT MEASURE. PT IS WAITING FOR TERMINALLY EXTUBATION. HOB ELEVATED. OGT LOW INTERMITTENT SUCTION. FC PATENT. NO URINE OUT PUT. IV RT UPPER ARM PICC LINE. LT UPPER ARM MID LINE. EPI DRIP RUNNING. GENERALIZED EDEMA. 4 +. WILL CONTINUE TO MONITOR VITALS.
[2020-01-29] MEDS ORDERED: LORAZEPAM INJ 2 MG/ML VIAL IV PRN (21:30)
[2020-01-29] MEDS ORDERED: MORPHINE SULFATE PF DRIP 250 MG in IV D5W 240 ML IV PRN (21:30)
[2020-01-29] MEDS: MORPHINE SULFATE INJ 2 MG/ML DISP.SYRIN IV PRN (22:52)
--- NOTE | 2020-01-29 23:42 | NUR ---
HERBARIUM WORKER. EXTUBATED AT 1529
--- NOTE | 2020-01-29 23:48 | NUR ---
@2340 PT TERMINALLY EXTUBATED.
--- NOTE | 2020-01-29 23:48 | NUR ---
STREET LIGHT SERVICER. PT TERMINALLY EXTUBATED AT 2340. MORPHINE DRIP STARTED PER PROTOCOL
--- NOTE | 2020-01-30 00:05 | NUR ---
BRIDGE MAINTAINER NOTES - EXPIRATION PATIENT S/P TERMINAL EXTUBATION ON MORPHINE DRIP. @ 0005, PATIENT NOTED TO BE IN ASYSTOLE ON MANAGER PROJECT MANAGEMENT. NO HEART TONES HEARD UPON AUSCULTATION, NO PULSES PALPABLE. PUPILS FIXED/DILATED. NO VISIBLE CHEST RISE, NO RESPIRATIONS NOTED. PATIENT PRONOUNCED BY CHARGE NURSE @ 0005
--- NOTE | 2020-01-30 01:21 | NUR ---
HOME ADVISOR. PT POUNCED AT 0005 BY NUT FORMER NICK. POST MORTEM CARE GIVEN. BODY SEND [facility].
--- NOTE | 2020-01-30 01:25 | NUR ---
DELIVERY TABLE FEEDER. NOTIFIED [facility],SPOKE PERSON CHRISTY. , NOTIFIED JAKI HARTLEY,NOTIFIED NURSING PRINT DESIGNER CANDICE,NOTIFIED MD ABDULLAHI AND NOTIFIED SON EDD. [facility],[employer],,CELL PHONE WITH BIOFUELS PLANT CONSTRUCTION WORKER ,WALLET AND UPPER AND LOWER DENTURES SEND TO NURSING OFFICE LOCKER
== END 2020-01-30 00:05 | disposition expired | DRG 853 ==
LOC: ER 08:33 → TELE1 10:59 → TELE-TD 12:39 → TELE1 01-07 07:47 → TELE 01-09 05:17 → MED 01-09 19:47 → ICU 01-26 07:47
PROVIDERS: ADMIT Hospitalist; ATTEND Nurse Practitioner Acute Care
PROC: 05HY33Z Insertion of Infusion Device into Upper Vein, Percutaneous Approach (ICD-10-PCS; 2020-01-06)
PROC: 0YU70JZ Supplement Right Femoral Region with Synthetic Substitute, Open Approach (ICD-10-PCS; principal; 2020-01-11)
PROC: 0YJ74ZZ Inspection of Right Femoral Region, Percutaneous Endoscopic Approach (ICD-10-PCS; 2020-01-11)
PROC: 0DB80ZZ Excision of Small Intestine, Open Approach (ICD-10-PCS; 2020-01-11)
PROC: 0DB58ZX Excision of Esophagus, Via Natural or Artificial Opening Endoscopic, Diagnostic (ICD-10-PCS; 2020-01-25)
PROC: 5A1945Z Respiratory Ventilation, 24-96 Consecutive Hours (ICD-10-PCS; 2020-01-26)
PROC: 0BH17EZ Insertion of Endotracheal Airway into Trachea, Via Natural or Artificial Opening (ICD-10-PCS; 2020-01-26)
PROC: 5A2204Z Restoration of Cardiac Rhythm, Single (ICD-10-PCS; 2020-01-26)
DX: A41.9 Sepsis, unspecified organism (principal); J69.0 Pneumonitis due to inhalation of food and vomit; J96.01 Acute respiratory failure with hypoxia; N17.0 Acute kidney failure with tubular necrosis; I21.A1 Myocardial infarction type 2; R65.21 Severe sepsis with septic shock; K22.6 Gastro-esophageal laceration-hemorrhage syndrome; J44.0 Chronic obstructive pulmonary disease with (acute) lower respiratory infection; J44.1 Chronic obstructive pulmonary disease with (acute) exacerbation; K41.30 Unilateral femoral hernia, with obstruction, without gangrene, not specified as recurrent; D68.9 Coagulation defect, unspecified; E87.2 Acidosis; J98.11 Atelectasis; E44.0 Moderate protein-calorie malnutrition; R18.8 Other ascites; C79.51 Secondary malignant neoplasm of bone; J90 Pleural effusion, not elsewhere classified; K56.7 Ileus, unspecified; Z51.5 Encounter for palliative care; I46.9 Cardiac arrest, cause unspecified; E86.0 Dehydration; E87.5 Hyperkalemia; Z89.611 Acquired absence of right leg above knee; E86.9 Volume depletion, unspecified; D69.6 Thrombocytopenia, unspecified; I25.2 Old myocardial infarction; I25.10 Atherosclerotic heart disease of native coronary artery without angina pectoris; I70.0 Atherosclerosis of aorta; K74.60 Unspecified cirrhosis of liver; K21.9 Gastro-esophageal reflux disease without esophagitis; I13.10 Hypertensive heart and chronic kidney disease without heart failure, with stage 1 through stage 4 chronic kidney disease, or unspecified chronic kidney disease; N18.9 Chronic kidney disease, unspecified; E87.6 Hypokalemia; E87.70 Fluid overload, unspecified; F17.200 Nicotine dependence, unspecified, uncomplicated; T38.0X5A Adverse effect of glucocorticoids and synthetic analogues, initial encounter; Y92.89 Other specified places as the place of occurrence of the external cause; K29.70 Gastritis, unspecified, without bleeding; K52.9 Noninfective gastroenteritis and colitis, unspecified; C61 Malignant neoplasm of prostate; K22.0 Achalasia of cardia; K22.2 Esophageal obstruction
CPT/HCPCS: 31720; 36410; 36415; 36600; 71045-TC; 71250-TC; 74018; 74250-TC; 75574; 76770-TC; 80048-TC; 80053-TC; 80061-TC; 80076-TC; 80202-TC; 81000-TC; 82105; 82272-TC; 82378; 82533; 82550-TC; 82570-TC; 82728-TC; 82803-TC; 82962-TC; 83540-TC; 83605-TC; 83615-TC; 83735-TC; 83880; 83970; 84100-TC; 84153-TC; 84154-TC; 84155; 84155-TC; 84165; 84300-TC; 84443-TC; 84484-TC; 85025-TC; 85027-TC; 85378-TC; 85385-TC; 85396; 85730-TC; 86140-TC; 86301; 86706; 86921-TC; 87040-TC; 87070-TC; 87075-TC; 87081-TC; 87086-TC; 87186-TC; 87340; 88305-TC; 88307-TC; 88312-TC; 93307-TC; 94002-TC; 94003-TC; 94760-TC; 94799-TC; 97110-TC; 97112-TC; 97530-TC; 99082-TC; A4217; A6209; C1751; C1781; C9113; G0378; J0171; J0330; J0743; J1100; J1170; J1650; J1720; J2060; J2185; J2270; J2274; J2405; J2543; J2704; J2710; J2765; J2930; J3370; J3430; J3480; J3490; J7030; J7040; J7042; J7050; J7060; J7070; J7120; Q9963; Q9966; Q9967; U0003-CS